=== PATIENT | female | born 1960 | race Caucasian/White ===

== ENCOUNTER 2020-02-02 09:54 | Outpatient (REF) | payer OTHER, SELFPAY ==
--- NOTE | 2020-02-02 10:00 | XR_ITS ---
EXAMINATION: XR CERVICAL SPINE CLINICAL INFORMATION: Cervical DJD. COMPARISON: None. TECHNIQUE: 6 views of the cervical spine, inclusive of flexion and extension views, were obtained. FINDINGS: There is mild straightening of cervical lordosis. Grade 1 anterolisthesis C4 over C5 and C5 over C6 is noted. There is loss of C6-C7 disc height with mild ventral spondylosis. On oblique views mild blunting of right C2-C3 and C5-C6 neural foramina is noted. No fracture, lytic or sclerotic process seen. There is bilateral facet joint arthropathy on the left C4-C5 and bilaterally C5-C6 disc levels. XR/XR cervical spine min 6V IMPRESSION: No acute fracture or dislocation. Grade 1 anterolisthesis C4 over C5 and C5 over C6. There is no visible acute fracture or dislocation.
== END 2020-02-02 09:55 | disposition home or self-care (01) ==
LOC: HO.XRAY 09:54
PROVIDERS: Visit Provider Internal Medicine
DX: M50.30 Other cervical disc degeneration, unspecified cervical region (principal)
CPT/HCPCS: 72052

== ENCOUNTER 2020-02-17 15:49 | Outpatient (REF) | payer OTHER, SELFPAY ==
--- NOTE | 2020-02-17 | MM_ITS ---
EXAMINATION: MM SCREENING DIGITAL BREAST TOMOSYNTHESIS, BILATERAL CLINICAL INFORMATION: Screening. Asymptomatic. The lifetime risk of breast cancer based on the Tyrer-Cuzick Model is 12%. COMPARISON: Mammography: 12/02/18, 10/10/17, 09/08/16, 05/21/15, 04/27/14 TECHNIQUE: Digital breast tomosynthesis is performed in both the craniocaudal and mediolateral oblique views along with computer-aided detection (CAD). Synthesized 2D images are generated from the tomosynthesis. Craniocaudal view of the right breast exaggerated toward the axilla was also performed using digital breast Tomosynthesis FINDINGS: There are scattered areas of fibroglandular density (ACR BI-RADS breast composition Category b). Right breast: There is unchanged global asymmetry in the upper outer right breast. There is an unchanged focal asymmetry in the upper outer right breast. There are no new suspicious right breast findings. Left breast: There is unchanged oval asymmetry in the upper outer left breast. There are no new suspicious left breast findings MM/MM tomosynthesis screening BI IMPRESSION: No mammographic evidence of malignancy. No suspicious interval changes ASSESSMENT: BI-RADS 2: Benign RECOMMENDATION: Routine annual mammography screening. This patient's information was entered into a reminder system with a target due date for their next mammogram.
== END 2020-02-17 15:50 | disposition home or self-care (01) ==
LOC: HO.MAMMO 15:49
PROVIDERS: Visit Provider Internal Medicine
DX: Z12.31 Encounter for screening mammogram for malignant neoplasm of breast (principal)
CPT/HCPCS: 77063; 77067

== ENCOUNTER 2020-08-07 10:48 | Outpatient (REF) | payer OTHER, SELFPAY ==
[2020-08-07 13:24] LABS: Hemoglobin 15.2 g/dl (12.0-16.0); Mean Corpuscular HGB Conc 33.8 g/dl (31.0-35.0); Mean Corpuscular Hemoglobin 29.6 pg (27.0-33.0); Mean Corpuscular Volume 87.7 fL (80-98); Mean Platelet Volume 9.8 fL (9.4-12.3); Platelet Count 326 X10*3/uL (160-400); Red Blood Count 5.13 X10*6/uL (4.20-5.50); Red Cell Distribution Width 12.2 % (11.0-16.0); White Blood Count 6.9 X10*3/uL (4.8-10.8)
[2020-08-07 13:48] LABS: Alanine Aminotransferase 28 U/L (0-31); Albumin Level 4.3 g/dL (3.5-5.0); Alkaline Phosphatase 83 U/L (39-117); Anion Gap 15 (12-20); Aspartate Amino Transferase 19 U/L (5-31); Bilirubin Total 0.6 mg/dL (0.0-1.0); Blood Urea Nitrogen 17 mg/dL (9-16); Calcium 9.6 mg/dL (8.4-10.2); Carbon Dioxide 26 mmol/L (22-29); Chloride 104 mmol/L (96-108); Cholesterol 173 mg/dL; Estimated Glomerular Filt Rate > 60; Glucose Random 130 mg/dL (60-115); HDL Cholesterol 61 mg/dL; LDL Cholesterol Calculated 90 mg/dl; Potassium 4.6 mmol/L (3.3-5.1); Sodium 140 mmol/L (135-145); Triglycerides 114 mg/dL
[2020-08-07 14:09] LABS: TSH reflex Free T4 1.71 uIU/mL (0.32-4.0); Vitamin D 25-OH Total 21.3 ng/mL (>30)
== END 2020-08-07 10:49 | disposition home or self-care (01) ==
LOC: HO.HMGCLDS 10:48
PROVIDERS: PCP Internal Medicine; Visit Provider Internal Medicine
DX: Z00.00 Encounter for general adult medical examination without abnormal findings (principal); E11.9 Type 2 diabetes mellitus without complications; E78.2 Mixed hyperlipidemia; E55.9 Vitamin D deficiency, unspecified; R53.82 Chronic fatigue, unspecified
CPT/HCPCS: 36415; 80053; 80061; 82306; 84443; 85027

== ENCOUNTER 2020-08-20 07:40 | Outpatient (REF) | payer OTHER, SELFPAY ==
--- NOTE | ~2020-08-20 | FL_ITS ---
EXAMINATION: FL BARIUM SWALLOW CLINICAL INFORMATION: Dysphagia. COMPARISON: None TECHNIQUE: Barium swallow examination was performed using fluoroscopic evaluation in addition to multiple fluoroscopic spot views. The patient was imaged both upright and prone and using both thick and thin sulfate along with effervescent granules. Fluoroscopy time: 2.3 minutes DAP: 20.125 Gycm2 Images: 50 FINDINGS: Following oral administration of thin and thick barium and barium-coated turkey in the upright view, there is normal propagation of the bolus from the oral cavity through the pharynx and esophagus into the stomach without any evidence of obstruction, narrowing or stricture. There is a moderate-sized ventral osteophyte indenting the posterior cervical esophageal wall. There is no obstruction. Also visualized is grade 1 anterolisthesis of C5 over C6. On oral administration of thin barium in the prone lying position, there is good distention of the entire esophagus without obstruction. FL/FL barium swallow IMPRESSION: Mild ventral spondylosis at the C6-C7 disc level with degenerative disc changes indenting the posterior cervical esophageal wall. There is no obstruction seen. Otherwise, the rest of the barium swallow appears unremarkable.
== END 2020-08-20 07:41 | disposition home or self-care (01) ==
LOC: HO.XRAY 07:40
PROVIDERS: PCP Internal Medicine; Visit Provider Internal Medicine
DX: R13.10 Dysphagia, unspecified (principal)
CPT/HCPCS: 74220

== ENCOUNTER 2021-02-22 11:52 | Outpatient (REF) | payer OTHER, SELFPAY ==
--- NOTE | ~2021-02-22 | MM_ITS ---
EXAMINATION: MM SCREENING DIGITAL BREAST TOMOSYNTHESIS, BILATERAL CLINICAL INFORMATION: Screening. Asymptomatic. The lifetime risk of breast cancer based on the Tyrer-Cuzick Model is 11%. COMPARISON: Mammography: 02/17/2020, 12/04/2018, 10/10/2017 TECHNIQUE: Digital breast tomosynthesis is performed in both the craniocaudal and mediolateral oblique views along with computer-aided detection (CAD). Synthesized 2D images are generated from the tomosynthesis. Additional bilateral CC and additional bilateral MLO views are provided. FINDINGS: There are scattered areas of fibroglandular density (ACR BI-RADS breast composition Category b). Parenchymal pattern is similar to prior exams. There is no interval significant mass or architectural abnormality or developing density. No abnormal calcifications. The axilla and skin contours are unremarkable. No significant changes. MM/MM tomosynthesis screening BI IMPRESSION: No mammographic evidence of malignancy. ASSESSMENT: BI-RADS 1: Negative RECOMMENDATION: Routine annual mammography screening. This patient's information was entered into a reminder system with a target due date for their next mammogram.
== END 2021-02-22 11:53 | disposition home or self-care (01) ==
LOC: HO.MAMMO 11:52
PROVIDERS: PCP Internal Medicine; Visit Provider Internal Medicine
DX: Z12.31 Encounter for screening mammogram for malignant neoplasm of breast (principal)
CPT/HCPCS: 77063; 77067

== ENCOUNTER 2021-06-24 07:45 | Day surgery (SDC) | payer OTHER, SELFPAY ==
[2021-06-20 10:22] VITALS: BMI 35.6
--- NOTE | 2021-06-23 09:43 | HO.ANESPROP2 ---
Documented by User: Lamar Holguin NP 06/23/21 09:44 HPI - Anesthesia Eval Consult details Narrative: 61yo F for Colonoscopy [facility] Past Medical History Medical History (Updated 06/20/21 @ 10:13 by Casie Wright RN) Arthritis Diabetes Elevated cholesterol Surgical History Surgical History (Updated 06/20/21 @ 10:15 by Casie Wright RN) H/O colonoscopy History of carpal tunnel release of both wrists Hx of cholecystectomy Hx of knee surgery Hx of tonsillectomy Social History Social History Patient Tobacco Use Status: Tobacco use Unknown Advance Directives: No (unknown-VM message left) Advance Directives Information Provided: Yes Advance Directives on File: No Meds Allergies Allergy/AdvReac Type Severity Reaction Status Date / Time No Known Allergies Allergy Unverified 11/27/19 15:25 [No Known Allergies*] Home Medications Medication Instructions Recorded Confirmed Last Taken Type metformin 500 mg tablet 1 tab PO QPM 06/20/21 06/20/21 Unknown History simvastatin 20 mg tablet 1 tab PO QPM 06/20/21 06/20/21 Unknown History trazodone 50 mg tablet 1 tab PO BEDTIME 06/20/21 06/20/21 Unknown History Exam Exam Date and Time: June 23, 2021 0943 Height,Weight and Vital Signs: Height 5 ft 7 in Weight 103.419 kg Assessment and Plan Assessment Anesthesia Assessment: Chart Reviewed Documented by User: Emely Dodson MD 06/24/21 08:16 [facility] Past Medical History Medical History (Updated 06/20/21 @ 10:13 by Casie Wright RN) Arthritis Diabetes Elevated cholesterol Family History Family history of problems with anesthesia: No Surgical History Surgical History (Updated 06/20/21 @ 10:15 by Casie Wright RN) H/O colonoscopy History of carpal tunnel release of both wrists Hx of cholecystectomy Hx of knee surgery Hx of tonsillectomy History of Problems with Anesthesia: No Social History Social History Patient Tobacco Use Status: Tobacco use Unknown Advance Directives: No (unknown-VM message left) Advance Directives Information Provided: Yes Advance Directives on File: No Meds Allergies Allergy/AdvReac Type Severity Reaction Status Date / Time No Known Allergies Allergy Unverified 11/27/19 15:25 [No Known Allergies*] Home Medications Medication Instructions Recorded Confirmed Last Taken Type metformin 500 mg tablet 1 tab PO QPM 06/20/21 06/20/21 Unknown History simvastatin 20 mg tablet 1 tab PO QPM 06/20/21 06/20/21 Unknown History trazodone 50 mg tablet 1 tab PO BEDTIME 06/20/21 06/20/21 Unknown History Exam Airway Mallampati Class: III TM Dist: >3cm Neck ROM: Full Assessment and Plan Assessment Anesthesia Assessment: Anesthesia Plan Discussed Final Anesthetic Review Family History of Problems with Anesthesia: No History of Problems with Anesthesia: No NPO: Yes ASA Class: III Final Preanesthetic Review: No Changes in Pt Med Stat, Meds/Allgs Chart Reviewed, Consent Obtained/Reviewed and Anes Risks/Benef Reviewed Patient Risk: Intermediate Procedure Risk: Low Anesthetic Plan Anesthetic Plan: MAC:
[2021-06-24 08:19] VITALS: BP 122/79; PULSE 94; RESP 16; TEMP 36.3; O2SAT 96
[2021-06-24 08:26] LABS: Glucose, Whole Blood 79 mg/dL (60-115)
[2021-06-24] MEDS: Lactated Ringers 1,000 ML 100 ML IVCONT (08:30)
[2021-06-24 09:35] VITALS: BP 101/58; PULSE 79; RESP 16; TEMP 36.5; O2SAT 95
--- NOTE | 2021-06-24 09:36 | P.BOP_ITS ---
Brief Operative Note Date of Service: 06/24/21 Pre-op diagnosis: Screening Post-op diagnosis: other (Polyps) Procedure: Colonoscopy to the cecum and TI with bx/removal of polyps Surgeon: Jude Robertson Anesthesia: MAC Was an Vp Informatics used for this Procedure?: No Estimated blood loss (mL): 2.0 Pathology: other (A. Ascending colon polyp B. Transverse colon polyp) Condition: stable Disposition: PACU
[2021-06-24 09:50] VITALS: BP 105/53; PULSE 78; RESP 16; O2SAT 100
[2021-06-24 10:03] VITALS: TEMP 36.4
--- NOTE | 2021-06-24 11:28 | OP_ITS ---
SURGEON: Jude Robertson MD INDICATIONS: The patient presents for evaluation of colorectal cancer screening and personal history of tubular adenoma of the colon. Full consent was obtained from her for this, including risks of bleeding and perforation. PREOPERATIVE DIAGNOSIS: POSTOPERATIVE DIAGNOSIS: PROCEDURE PERFORMED: Colonoscopy to the cecum and terminal ileum with biopsy and removal of polyps. ESTIMATED BLOOD LOSS: COMPLICATIONS: ANESTHESIA: Monitored anesthesia care. ASSISTANTS: SPECIMENS: PREOPERATIVE DIAGNOSES: Colorectal cancer screening and personal history of tubular adenoma of the colon. POSTOPERATIVE DIAGNOSES: Colorectal cancer screening and personal history of tubular adenoma of the colon, small colon polyps, diverticulosis, and internal hemorrhoids. DESCRIPTION OF PROCEDURE: The patient was placed in the left lateral decubitus position. The digital rectal exam revealed no abnormalities. The Olympus video pediatric colonoscope was entered into the rectum and advanced easily to the cecum. Once in the cecum, I did identify normal-appearing cecal pouch with appendiceal orifice and a normal-appearing ileocecal valve. The terminal ileum was cannulated and appeared normal. Scope was withdrawn back in the colon. The entire cecum and ileocecal valve appeared normal. The scope was slowly withdrawn assessing all mucosal surfaces carefully. Preparation was excellent. In the ascending colon and transverse colon were flat approximately 3 or 4 mm polyps, which were each biopsied and completely removed with cold biopsy forceps. I did not visualize any other polyps, colitis, or angiodysplasia. There was a mild amount of sigmoid diverticulosis. In the rectum, scope was retroflexed visualizing internal hemorrhoids, but no other pathology. The rectal mucosa appeared normal. The scope was straightened and withdrawn from the patient. She tolerated the procedure well and was returned to recovery area in stable condition. IMPRESSION: 1. Small colon polyps, status post biopsy removal. 2. Diverticulosis. 3. Internal hemorrhoids. PLAN: The results of the pathology will be checked. I would recommend a repeat colonoscopy in 5 years for further surveillance. She will otherwise see me on a p.r.n. basis. MD EMETERIO Tidwell/VANITA / [phone]
== END 2021-06-24 10:30 | disposition home or self-care (01) ==
PROVIDERS: PCP Internal Medicine; Visit Provider Internal Medicine
PROC: 0DJD8ZZ Inspection of Lower Intestinal Tract, Via Natural or Artificial Opening Endoscopic (ICD-10-PCS; CPT 45378; principal; 2021-06-24 09:00)
DX: Z12.11 Encounter for screening for malignant neoplasm of colon (principal); Z86.010 Personal history of colon polyps; D12.2 Benign neoplasm of ascending colon; D12.3 Benign neoplasm of transverse colon; K57.30 Diverticulosis of large intestine without perforation or abscess without bleeding; K64.8 Other hemorrhoids; E78.5 Hyperlipidemia, unspecified; E11.9 Type 2 diabetes mellitus without complications; Z79.899 Other long term (current) drug therapy; Z90.49 Acquired absence of other specified parts of digestive tract
CPT/HCPCS: 45380; 82947; 88305

== ENCOUNTER 2021-08-13 06:59 | Outpatient (REF) | payer OTHER, SELFPAY ==
[2021-08-13 10:58] LABS: Hematocrit 42.9 % (37.0-47.0); Hemoglobin 14.3 g/dl (12.0-16.0); Mean Corpuscular HGB Conc 33.3 g/dl (31.0-35.0); Mean Corpuscular Hemoglobin 29.9 pg (27.0-33.0); Mean Corpuscular Volume 89.7 fL (80.0-98.0); Mean Platelet Volume 9.9 fL (9.4-12.3); Platelet Count 333 X10*3/uL (160-400); Red Blood Count 4.78 X10*6/uL (4.20-5.50); Red Cell Distribution Width 12.6 % (11.0-16.0); White Blood Count 6.1 X10*3/uL (4.8-10.8)
[2021-08-13 11:23] LABS: Alanine Aminotransferase 18 U/L (0-31); Albumin Level 4.1 g/dL (3.5-5.0); Alkaline Phosphatase 67 U/L (39-117); Anion Gap 12 (12-20); Aspartate Amino Transferase 15 U/L (5-31); Bilirubin Total 0.7 mg/dL (0.0-1.0); Blood Urea Nitrogen 22 mg/dL (9-16); Calcium 9.1 mg/dL (8.4-10.2); Carbon Dioxide 27 mmol/L (22-29); Chloride 106 mmol/L (96-108); Cholesterol 169 mg/dL; Estimated Glomerular Filt Rate > 60; Glucose Fasting 134 mg/dL (60-99); HDL Cholesterol 55 mg/dL; LDL Cholesterol Calculated 100 mg/dl; Sodium 141 mmol/L (135-145); Total Protein 6.7 g/dL (6.5-8.0); Triglycerides 70 mg/dL
[2021-08-13 11:48] LABS: TSH reflex Free T4 2.09 uIU/mL (0.32-4.0); Vitamin D 25-OH Total 55.3 ng/mL (>30)
== END 2021-08-13 07:00 | disposition home or self-care (01) ==
LOC: HO.HMGCLDS 06:59
PROVIDERS: PCP Internal Medicine; Visit Provider Internal Medicine
DX: Z00.00 Encounter for general adult medical examination without abnormal findings (principal); E11.9 Type 2 diabetes mellitus without complications; E55.9 Vitamin D deficiency, unspecified; E78.2 Mixed hyperlipidemia; R53.83 Other fatigue
CPT/HCPCS: 36415; 80053; 80061; 82306; 84443; 85027

== ENCOUNTER 2021-08-15 08:38 | Outpatient (REF) | payer OTHER, SELFPAY ==
[2021-08-15 09:35] LABS: Creatinine Urine 71.34 mg/dL; Microalbumin Urine < 5.0 mg/L
== END 2021-08-15 08:39 | disposition home or self-care (01) ==
LOC: HO.LNP 08:38
PROVIDERS: Visit Provider Internal Medicine
DX: Z00.00 Encounter for general adult medical examination without abnormal findings (principal); E11.9 Type 2 diabetes mellitus without complications; E78.2 Mixed hyperlipidemia; E55.9 Vitamin D deficiency, unspecified; R53.83 Other fatigue
CPT/HCPCS: 82043

== ENCOUNTER 2022-03-21 11:36 | Outpatient (REF) | payer OTHER, SELFPAY ==
--- NOTE | ~2022-03-21 | US_ITS ---
EXAMINATION: US EXTREMITY NONVASCULAR CLINICAL INFORMATION: Palpable lump right shoulder. COMPARISON: None TECHNIQUE: Routine limited imaging through the right shoulder. Palpable lump is noted. FINDINGS: There is a solid isoechoic area measuring 5.0 x 1.2 x 1.5 cm isoechoic to adjacent fat. It is avascular. US/US extremity nonvascular IMPRESSION: Solid isoechoic lesion superficial to right shoulder corresponds to palpable lump is most likely a lipoma. Other differential diagnosis may include a fibroma. There is no cystic components within.
== END 2022-03-21 11:37 | disposition home or self-care (01) ==
LOC: HO.HMGCX 11:36
PROVIDERS: PCP Internal Medicine; Visit Provider Internal Medicine
DX: D17.79 Benign lipomatous neoplasm of other sites (principal)
CPT/HCPCS: 76882

== ENCOUNTER 2022-03-28 11:56 | Outpatient (REF) | payer OTHER, SELFPAY ==
--- NOTE | ~2022-03-28 | MM_ITS ---
EXAMINATION: MM SCREENING DIGITAL BREAST TOMOSYNTHESIS, BILATERAL CLINICAL INFORMATION: Screening. Asymptomatic. The lifetime risk of breast cancer based on the Tyrer-Cuzick Model is 10%. COMPARISON: Mammography: 02/22/2021, 02/17/2020, 12/04/2018, 10/10/2017 TECHNIQUE: Digital breast tomosynthesis is performed in both the craniocaudal and mediolateral oblique views along with computer-aided detection (CAD). Synthesized 2D images are generated from the tomosynthesis. Additional right cleavage view is provided. FINDINGS: There are scattered areas of fibroglandular density (ACR BI-RADS breast composition Category b). There are no significant masses, abnormal calcifications, or other abnormalities. Fibronodular parenchymal pattern with scattered stable asymmetries are similar to prior studies. There are intramammary nodes again seen bilateral posterior upper outer quadrant. No significant changes. MM/MM tomosynthesis screening BI IMPRESSION: No mammographic evidence of malignancy. ASSESSMENT: BI-RADS 2: Benign RECOMMENDATION: Routine annual mammography screening. This patient's information was entered into a reminder system with a target due date for their next mammogram.
== END 2022-03-28 11:57 | disposition home or self-care (01) ==
LOC: HO.MAMMO 11:56
PROVIDERS: PCP Internal Medicine; Visit Provider Internal Medicine
DX: Z12.31 Encounter for screening mammogram for malignant neoplasm of breast (principal)
CPT/HCPCS: 77063; 77067

== ENCOUNTER → 2022-06-13 14:37 | Outpatient (BNVA) | payer OTHER, SELFPAY | PROVIDERS: PCP Internal Medicine; Visit Provider Surgery | DX: Z13.89 Encounter for screening for other disorder (principal) ==

== ENCOUNTER 2022-07-03 07:56 | Day surgery (SDC) | payer OTHER, SELFPAY ==
[2022-06-28 13:55] VITALS: BMI 33.6
--- NOTE | 2022-06-30 13:56 | P.CONAN_ITS ---
Documented by User: Lamar Holguin NP 06/30/22 13:56 HPI - Anesthesia Eval Consult details Narrative: 62yo F for Right Excision Lipoma of shoulder PMFSH Active Problems Active Problems: All Active Problems (Updated 06/28/22 @ 13:53 by Casie Wright RN) Lipoma (Acute) Past Medical History Medical History (Updated 06/28/22 @ 13:53 by Casie Wright RN) Arthritis Diabetes Elevated cholesterol Family History Family history of problems with anesthesia: No Surgical History Surgical History (Updated 06/28/22 @ 13:38 by Casie Wright RN) H/O colonoscopy History of carpal tunnel release of both wrists Hx of cholecystectomy Hx of knee surgery Hx of tonsillectomy History of Problems with Anesthesia: No Social History Social History Are you a primary neonatal intensive care unit nurse to a significant other at home: No Do you presently have visiting nurse or other home services: No Patient Tobacco Use Status: Never used Tobacco Use of substances other than those prescribed or required for medical reasons: No Have you been hit, kicked, punched, or otherwise hurt by someone within the past year? If so, by whom?: No Are you DNR?: No Advance Directives: No Advance Directives Information Provided: Yes (brochure given) Advance Directives on File: No Recently lost weight without trying: No Eating poorly because of decreased appetite: No Nutrition Risks: No Nutritional Risk Patient : No : No Poor oral hygiene: No Meds Allergies Allergy/AdvReac Type Severity Reaction Status Date / Time No Known Allergies Allergy Unverified 06/13/22 14:55 [No Known Allergies*] Home Medications Medication Instructions Recorded Confirmed Last Taken Type metformin 500 mg tablet 1 tab PO QPM 06/20/21 06/28/22 Unknown History simvastatin 20 mg tablet 1 tab PO QPM 06/20/21 06/28/22 Unknown History cholecalciferol (vitamin D3) 25 25 mcg PO DAILY 06/13/22 06/28/22 Unknown History mcg (1,000 unit) capsule khjqxeeg-syckmfq-wcsa-lutein tablet 1 tab PO DAILY 06/13/22 06/28/22 Unknown History biotin 1,000 mcg chewable tablet 1,000 mcg PO DAILY 06/28/22 06/28/22 Unknown History vitamin C 45 mg-zinc citrate 3.75 1 tab PO DAILY 06/28/22 06/28/22 Unknown History mg-elderberry 50 mg chewable tablet (Poshly) Exam Exam Date and Time: June 30, 2022 1356 Height,Weight and Vital Signs: Height 5 ft 7 in Weight 97.522 kg Assessment and Plan Assessment Anesthesia Assessment: Chart Reviewed Final Anesthetic Review Family History of Problems with Anesthesia: No History of Problems with Anesthesia: No Documented by User: Cristian Dumont MD 07/03/22 07:54 PMFSH Past Medical History Medical History (Updated 06/28/22 @ 13:53 by Casie Wright RN) Arthritis Diabetes Elevated cholesterol Surgical History Surgical History (Updated 06/28/22 @ 13:38 by Casie Wright RN) H/O colonoscopy History of carpal tunnel release of both wrists Hx of cholecystectomy Hx of knee surgery Hx of tonsillectomy Social History Social History Are you a primary neonatal intensive care unit nurse to a significant other at home: No Do you presently have visiting nurse or other home services: No Patient Tobacco Use Status: Never used Tobacco Use of substances other than those prescribed or required for medical reasons: No Have you been hit, kicked, punched, or otherwise hurt by someone within the past year? If so, by whom?: No Are you DNR?: No Advance Directives: No Advance Directives Information Provided: Yes (brochure given) Advance Directives on File: No Recently lost weight without trying: No Eating poorly because of decreased appetite: No Nutrition Risks: No Nutritional Risk Patient : No : No Poor oral hygiene: No Meds Allergies Allergy/AdvReac Type Severity Reaction Status Date / Time No Known Allergies Allergy Unverified 06/13/22 14:55 [No Known Allergies*] Home Medications Medication Instructions Recorded Confirmed Last Taken Type metformin 500 mg tablet 1 tab PO QPM 06/20/21 06/28/22 Unknown History simvastatin 20 mg tablet 1 tab PO QPM 06/20/21 06/28/22 Unknown History cholecalciferol (vitamin D3) 25 25 mcg PO DAILY 06/13/22 06/28/22 Unknown History mcg (1,000 unit) capsule lvomxbls-txsogcn-cobc-lutein tablet 1 tab PO DAILY 06/13/22 06/28/22 Unknown History biotin 1,000 mcg chewable tablet 1,000 mcg PO DAILY 06/28/22 06/28/22 Unknown History vitamin C 45 mg-zinc citrate 3.75 1 tab PO DAILY 06/28/22 06/28/22 Unknown His tory mg-elderberry 50 mg chewable tablet (Poshly) Exam Airway Mallampati Class: II TM Dist: >3cm Neck ROM: Limited Heart: rrr Lungs: cta Assessment and Plan Assessment Anesthesia Assessment: Anesthesia Plan Discussed Final Anesthetic Review NPO: Yes ASA Class: II Patient Risk: Intermediate Procedure Risk: Low Anesthetic Plan Anesthetic Plan: GA Disposition: Standard PACU
[2022-07-03 08:10] VITALS: BP 151/83; PULSE 79; RESP 20; TEMP 36.8; O2SAT 98
[2022-07-03 08:10] LABS: Glucose, Whole Blood 125 mg/dL (60-115)
[2022-07-03 08:20] VITALS: BP 120/67
[2022-07-03] MEDS: Lactated Ringers 1,000 ML 100 ML IVCONT (08:28)
--- NOTE | 2022-07-03 08:29 | PC.NURSE ---
no meds taken today
--- NOTE | 2022-07-03 08:50 | MHC.SHP ---
Pre-Procedural Eval Section A Date of Service: 07/03/22 The patient is an INPATIENT: No Changes since office visit: Yes Patient answered all questions; No Cold of Flu in the past 2 weeks, No New Medical Problems and No Changes in Medication The History & Physical has been completed within 30 days and I have reviewed it.: Yes Section B Chief Complaint: Benign lipomatous neoplasm, unspecified Allergies: Allergies Allergy/AdvReac Type Severity Reaction Status Date / Time No Known Allergies Allergy Unverified 06/13/22 14:55 [No Known Allergies*] Plan Diagnosis/Plan: Unchanged I have reviewed the history and physical and performed a pertinent physical examination on my patient. No changes have occurred unless specified. Time Spent With Patient Time: Total time managing care of this patient today ____ minutes.
--- NOTE | 2022-07-03 09:34 | P.OP_ITS ---
Operative Note Operative Note Date of Service: 07/03/22 Narrative: Preoperative diagnosis:Lipoma right shoulder Postoperative diagnosis:same Procedure:Excision lipoma right shoulder Surgeon: Bassem Roth MD Medical Front Desk Coordinator: Zoe Pearson PA-C Anesthesia: MAC Indications for procedure:62 year old female with a soft tissue mass right shoulder increasing is size with time Operative findings:5 cm lipoma right shoulder Specimen:lipoma right shoulder Estimated blood loss:<1 ml Complications:none Procedure details: Patient was brought to the OR placed in a supine position. After administering light sedation patient's right shoulder was prepped with ChloraPrep and draped in a sterile fashion. A surgical time-out was called and consent confirmed. Patient received preoperative antibiotics and Venodyne boots were in place. Local anesthesia consisting of 0.5% Sensorcaine with epinephrine was then infiltrated around the lipoma in the right shoulder. A 2 cm incision was then created with scalpel carried out through subcutaneous tissue down to the outer surface of the lipoma. Blunt dissection was then used to free the lipoma from the surrounding subcutaneous tissue. The lipoma was then excised using electrocautery at its base. Hemostasis was then assured using electrocautery. Wounds were then irrigated and suctioned dry. Dermis was then reapproximated using interrupted 3-0 Polysorb sutures. Skin was closed using a running subcuticular 4-0 Polysorb suture. Steri-Strips, 2 x 2 gauze and Tegaderm were then applied. The patient tolerated the procedure well. Sponge, instrument, and needle counts reported as correct. Patient was transferred to PACU in stable condition.
[2022-07-03 10:01] VITALS: BP 112/57; PULSE 78; RESP 16; TEMP 36.8; O2SAT 93
[2022-07-03 10:16] VITALS: BP 117/70; PULSE 71; RESP 16; TEMP 36.7; O2SAT 95
== END 2022-07-03 11:00 | disposition home or self-care (01) ==
PROVIDERS: PCP Internal Medicine; Visit Provider Surgery
PROC: (CPT 23071; principal; 2022-07-03 09:40)
DX: D17.21 Benign lipomatous neoplasm of skin and subcutaneous tissue of right arm (principal); E78.00 Pure hypercholesterolemia, unspecified; M19.90 Unspecified osteoarthritis, unspecified site; Z90.49 Acquired absence of other specified parts of digestive tract; Z79.84 Long term (current) use of oral hypoglycemic drugs; Z79.899 Other long term (current) drug therapy; E11.9 Type 2 diabetes mellitus without complications
CPT/HCPCS: 23071; 82947; 88304; J0690; J1885

== ENCOUNTER → 2022-07-18 11:36 | Outpatient (BNVA) | payer OTHER, SELFPAY | PROVIDERS: PCP Internal Medicine; Visit Provider Physician Assistant Surgical ==

== ENCOUNTER 2022-09-15 07:49 | Outpatient (REF) | payer OTHER, SELFPAY ==
[2022-09-15 11:06] LABS: Creatinine Urine 73.47 mg/dL; Microalbumin Urine < 5.0 mg/L
== END 2022-09-15 07:50 | disposition home or self-care (01) ==
LOC: HO.LAB 07:49
PROVIDERS: PCP Internal Medicine; Visit Provider Internal Medicine
DX: Z00.00 Encounter for general adult medical examination without abnormal findings (principal); E11.9 Type 2 diabetes mellitus without complications; E78.2 Mixed hyperlipidemia; R53.83 Other fatigue
CPT/HCPCS: 36415; 80053; 80061; 82043; 84443; 85025

== ENCOUNTER 2023-03-21 09:45 | Outpatient (REF) | payer OTHER, SELFPAY ==
--- NOTE | ~2023-03-21 | XR_ITS ---
EXAMINATION: XR KNEE AP STANDING CLINICAL INFORMATION: Primary osteoarthritis of both knees COMPARISON: 02/20/2018 TECHNIQUE: AP bilateral standing view of the knees was obtained. FINDINGS: When compared to the previous examination there is progression of narrowing in the medial compartments of both knee joints, more prominent on the left with marginal spurring seen medially and laterally. There is mild varus deformity of the left knee. There is no evidence of fractures. Soft tissues unremarkable. XR/XR knee standing BI IMPRESSION: Progression of degenerative changes in the medial compartment of both knee joints, slightly more prominent on the left.
[2023-03-21 10:09] LABS: Estimated Average Glucose 134 mg/dL; Hemoglobin A1c % 6.3 % (<6.0)
== END 2023-03-21 09:46 | disposition home or self-care (01) ==
LOC: HO.LAB 09:45
PROVIDERS: PCP Internal Medicine; Visit Provider Internal Medicine
DX: M17.0 Bilateral primary osteoarthritis of knee (principal); E11.9 Type 2 diabetes mellitus without complications
CPT/HCPCS: 36415; 73565; 83036

== ENCOUNTER 2023-06-15 10:17 | Outpatient (REF) | payer OTHER, SELFPAY ==
--- NOTE | ~2023-06-15 | MM_ITS ---
EXAMINATION: MM SCREENING DIGITAL BREAST TOMOSYNTHESIS, BILATERAL CLINICAL INFORMATION: Screening. Asymptomatic. COMPARISON: Mammography: 03/28/2022, 02/22/2021, 02/17/2020, 12/04/2018, 10/10/2017, and dating back to 2013. TECHNIQUE: Digital breast tomosynthesis is performed in both the craniocaudal and mediolateral oblique views along with computer-aided detection (CAD). Synthesized 2D images are generated from the tomosynthesis. In addition to standard views, added bilateral CC full-field views, and bilateral MLO full field views were included due to breasts size. FINDINGS: There are scattered areas of fibroglandular density (ACR BI-RADS breast composition Category b). There are no suspicious masses, suspicious grouped calcifications, or areas of architectural distortion in either breast. Fibronodular parenchymal pattern with scattered stable asymmetries are similar to prior studies. There are intramammary nodes again seen bilateral posterior upper outer quadrants. No significant changes. There are no skin or axillary abnormalities. MM/MM tomosynthesis screening BI IMPRESSION: -No mammographic evidence of malignancy. -Stable benign parenchymal asymmetries. No change. ASSESSMENT: BI-RADS BI-RADS 2 - Benign Findings RECOMMENDATION: Routine annual mammography screening. 1 year F/U This examination should not preclude the clinical evaluation of a suspicious palpable abnormality. This patient's information was entered into a reminder system with a target due date for their next mammogram.
== END 2023-06-15 10:18 | disposition home or self-care (01) ==
LOC: HO.MAMMO 10:17
PROVIDERS: PCP Internal Medicine; Visit Provider Internal Medicine
DX: Z12.31 Encounter for screening mammogram for malignant neoplasm of breast (principal)
CPT/HCPCS: 77063; 77067

== ENCOUNTER → 2023-06-15 10:30 | Outpatient (BNV) | payer OTHER, SELFPAY | PROVIDERS: PCP Internal Medicine; Visit Provider Radiology Diagnostic Radiology | DX: Z12.31 Encounter for screening mammogram for malignant neoplasm of breast (principal) | CPT/HCPCS: 77063; 77067 ==

== ENCOUNTER → 2023-07-09 10:51 | Outpatient (BNVA) | payer OTHER, SELFPAY | PROVIDERS: PCP Internal Medicine; Visit Provider Orthopaedic Surgery ==

== ENCOUNTER 2023-07-10 12:37 | Outpatient (AMB) | payer OTHER, SELFPAY ==
[2023-07-10 12:40] VITALS: BMI 37.3
--- NOTE | 2023-07-10 12:40 | MHC.OFFVIS ---
Vital Signs 07/10/23 12:40 Height 5 ft 7 in Weight 238 lb BMI 37.3 Intake Visit Reasons: ov- Bilateral knee pain Intake Note: Ms. Frazier is a 63-year-old female who presents with complaints of progressively worsening bilateral knee pains and giving way. At this point her right knee pain is more bothersome than is her left. She has undergone bilateral knee arthroscopic surgery several years ago by Dr. Frazier. She got fairly good relief from those procedures initially. She has tried Tylenol and Motrin which gave her only mild relief. Most of the pain is along the medial aspects of her knees. Inventory Control Coordinator Required: No Accompanied by: Self / Same As Patient Allergies No Known Allergies [No Known Allergies*] Allergy (Unverified 07/10/23 12:41) Medication List - Last Reconciled 07/10/23 by Vernon Zambrano MD biotin 1,000 mcg PO DAILY cholecalciferol (vitamin D3) 25 mcg PO DAILY metformin 1 tab PO QPM jzixfqoo-xqukrsg-gvbp-lutein 1 tab PO DAILY simvastatin 1 tab PO QPM vit C-zinc citrate-elderberry 45-3.75-50 mg ([facility]) 1 tab PO DAILY PFSH Medical History (Updated 07/10/23 @ 12:59 by Vernon Zambrano MD) Arthritis Elevated cholesterol Diabetes Surgical History (Updated 07/20/22 @ 14:41 by Zoe Pearson PA-C) S/P excision of lipoma (07/03/22) History of carpal tunnel release of both wrists Hx of tonsillectomy Hx of knee surgery Hx of cholecystectomy H/O colonoscopy Social History (Updated 07/10/23 @ 12:43 by RADHA Campos) Are you a primary rn managed care to a significant other at home: No Do you presently have visiting nurse or other home services: No Alcohol intake: current Alcohol intake frequency: holidays/special occasions only Patient Tobacco Use Status: Never used Tobacco Physical Exam Vital Signs: BMI result Body Mass Index 37.3 Const Other: Well-nourished well-developed very friendly female awake alert and oriented x3 in no acute distress Extrem Other: Bilateral lower extremity examination shows good capillary refill, no skin lesions noted, normal sensation light touch Bilateral knee examination shows tenderness along her medial joint lines, positive Bindu's test, no instability Results Reviewed Results Reviewed: X-rays of the patient's bilateral knee show moderate joint space narrowing most significant in the medial compartments, no acute bony abnormalities Assessment & Plan Assessment & Plan (1) Tear of medial meniscus of right knee: Code(s): S83.241A - Other tear of medial meniscus, current injury, right knee, initial encounter Category: Medical Plan Ms. Frazier presents with bilateral knee pains and mechanical symptoms, right greater than left, due to degenerative joint disease as well as possible tearing of her medial menisci. Thus, I will send the patient for an MRI of her right knee for further evaluation. I will see her back once the MRI is completed to discuss the findings and treatment options. Feel free to call me at any time should questions regarding her orthopedic management arise. Thank you very much for asking me to see this very friendly patient. I spent 22 minutes in reviewing the patient's records and imaging studies, seeing the patient and documenting in the medical record. Orders: Orders MR knee RT wo con Today S83.241A - Other tear of medial meniscus, current injury, right knee, initial encounter Coding Level of Care Code New Pt Level 2 (45211) Diagnoses Tear of medial meniscus of right knee S83.241A
== END 2023-07-10 12:58 | disposition home or self-care (01) ==
PROVIDERS: PCP Internal Medicine; Visit Provider Orthopaedic Surgery
DX: S83.241A Other tear of medial meniscus, current injury, right knee, initial encounter (principal)
CPT/HCPCS: 99202

== ENCOUNTER → 2023-07-10 12:37 | Outpatient (BNVA) | payer OTHER, SELFPAY | PROVIDERS: PCP Internal Medicine; Visit Provider Orthopaedic Surgery ==

== ENCOUNTER 2023-07-20 10:39 | Outpatient (REF) | payer OTHER, SELFPAY ==
--- NOTE | ~2023-07-20 | MR_ITS ---
EXAMINATION: MR KNEE WITHOUT CONTRAST, RIGHT CLINICAL INFORMATION: Right knee pain. Instability. Prior arthroscopy. COMPARISON: Multiple priors, most recent right knee radiographs dated 03/21/2023 and MRI dated 05/23/2017. TECHNIQUE: MRI of the knee without contrast was performed using routine sequences on a high-field scanner. FINDINGS: MENISCI: Medial Meniscus: Interval attenuation and heterogeneity of the posterior meniscal body with significant thickening and irregularity along the periphery in the region of the previously seen meniscal flap. Attenuation extends through the inner margin and tibial articular surface of the posterior horn and root. Findings are increased in prominence when compared to the prior examination and likely represent progressive complex tearing. Lateral Meniscus: Intact. LIGAMENTS: Cruciate: Prominent thickening and increased T2 signal throughout the anterior cruciate ligament with more mild increased T2 signal in the posterior cruciate ligament, increased when compared to the prior examination and consistent with mucoid degeneration. Collateral: Intact. EXTENSOR MECHANISM: Intact quadriceps and patellar tendons. Normal patellofemoral alignment. ARTICULAR CARTILAGE/BONE: Patellofemoral Compartment: Diffuse patellar articular cartilage thinning and signal heterogeneity with areas of full-thickness fissuring and underlying subchondral cystic change. Medial and central trochlear signal heterogeneity and surface irregularity. Marginal osteophytes. Findings are progressed when compared to the prior examination. Medial Compartment: Diffuse articular cartilage thinning with broad areas of weightbearing full-thickness articular cartilage loss where there is mild subchondral cystic change. Marginal osteophytes. Findings are progressed when compared to the prior examination. Lateral Compartment: Articular cartilage signal heterogeneity and surface irregularity with small marginal osteophytes, slightly progressed. JOINT FLUID AND BURSAE: Small joint effusion and small Mcginnis's cyst with mild synovitis. Fluid/edema extending distal to the Mcginnis's cyst within the fascial planes, consistent with leak or rupture. MR/MR knee RT wo con IMPRESSION: 1. Interval attenuation and heterogeneity of the posterior medial meniscal body with significant thickening and irregularity along the periphery of the meniscal body as well as progressive attenuation of the posterior horn and body, consistent with progressive complex tearing. 2. Mucoid degeneration of the anterior cruciate ligament and to a lesser degree the posterior cruciate ligament, increased when compared to the prior examination. 3. Vckdfuns-nb-oauxkq medial as well as yllg-jr-mtycntem patellofemoral and mild lateral compartment osteoarthritis, progressed when compared to the prior examination. Small joint effusion and small Mcginnis's cyst with mild synovitis. Fluid/edema extending distal to the Mcginnis's cyst within the fascial planes, consistent with leak or rupture.
== END 2023-07-20 10:40 | disposition home or self-care (01) ==
LOC: HO.MRI 10:39
PROVIDERS: PCP Internal Medicine; Visit Provider Orthopaedic Surgery
DX: S83.241A Other tear of medial meniscus, current injury, right knee, initial encounter (principal)
CPT/HCPCS: 73721

== ENCOUNTER 2023-08-29 14:34 | Outpatient (AMB) | payer OTHER, SELFPAY ==
--- NOTE | 2023-08-29 14:35 | A.OFFVIS_ITS ---
Intake Visit Reasons: OV - Right Knee MRI Review Intake Note: Ms. Frazier is a 63-year-old female who presents with complaints of progressively worsening bilateral knee pains and giving way. At this point her right knee pain is more bothersome than is her left. She has undergone bilateral knee arthroscopic surgery several years ago by Dr. Frazier. She got fairly good relief from those procedures initially. She has tried Tylenol and Motrin which gave her only mild relief. Most of the pain is along the medial aspects of her knees. She states that her right knee will give out several times per day. She has done physical therapy which aggravated her pain. Allergies No Known Allergies [No Known Allergies*] Allergy (Unverified 08/29/23 14:37) Medication List - Last Reconciled 08/29/23 by Vernon Zambrano MD biotin 1,000 mcg PO DAILY cholecalciferol (vitamin D3) 25 mcg PO DAILY meloxicam 15 mg PO DAILY PRN metformin 1 tab PO QPM berajoir-rstmtze-cdul-lutein 1 tab PO DAILY simvastatin 1 tab PO QPM vit C-zinc citrate-elderberry 45-3.75-50 mg ([employer]) 1 tab PO DAILY PFSH Medical History Arthritis Elevated cholesterol Diabetes Surgical History S/P excision of lipoma (07/03/22) History of carpal tunnel release of both wrists Hx of tonsillectomy Hx of knee surgery Hx of cholecystectomy H/O colonoscopy Social History Are you a primary dialysis patient care technician to a significant other at home: No Do you presently have visiting nurse or other home services: No Alcohol intake: current Alcohol intake frequency: holidays/special occasions only Patient Tobacco Use Status: Never used Tobacco Physical Exam Const Other: Well-nourished well-developed very friendly female awake alert and oriented x3 in no acute distress Extrem Other: Bilateral lower extremity examination shows good capillary refill, no skin lesions noted, normal sensation light touch Right knee examination shows a minimal effusion, mild crepitus with range of motion, tenderness along her medial and lateral joint lines, positive Bindu's test, no instability Results Reviewed Results Reviewed: Standing full weight-bearing x-rays of the patient's right knee show mild joint space narrowing, no acute bony abnormalities MRI of the patient's right knee shows mild diffuse degenerative changes as well as tearing of the medial and lateral menisci Assessment & Plan Assessment & Plan (1) Tear of medial meniscus of right knee: Code(s): S83.241A - Other tear of medial meniscus, current injury, right knee, initial encounter Category: Medical Plan Ms. Frazier presents with progressively worsening right knee pain and mechanical symptoms due to tearing of her medial and lateral menisci. I had a lengthy discussion with the patient regarding the treatment options. At this point she has failed continued non operative treatments. The risks and benefits of right knee arthroscopic surgery were discussed at length with the patient. The patient wishes to proceed with surgery. She does understand that she may not get 100% relief of her symptoms depending on the severity of her degenerative changes. Surgery will involve right knee arthroscopic partial medial and lateral meniscectomies. The patient will be scheduled for next available date. She will follow-up as instructed. Feel free to call me at any time should questions regarding her orthopedic management arise. I spent 20 minutes in reviewing the patient's records and imaging studies, seeing the patient and documenting in the medical record. Medications: New meloxicam 15 mg PO DAILY PRN 30 tabs 3RF pain Coding Level of Care Code Tele New Pt Level 3 (18660) Diagnoses Tear of medial meniscus of right knee S83.241A
== END 2023-08-29 15:05 | disposition home or self-care (01) ==
PROVIDERS: PCP Internal Medicine; Visit Provider Orthopaedic Surgery
DX: S83.241A Other tear of medial meniscus, current injury, right knee, initial encounter (principal)
CPT/HCPCS: 99214

== ENCOUNTER → 2023-08-29 14:34 | Outpatient (BNVA) | payer OTHER, SELFPAY | PROVIDERS: PCP Internal Medicine; Visit Provider Orthopaedic Surgery ==

== ENCOUNTER 2023-10-19 09:30 | Outpatient (REF) | payer OTHER, SELFPAY ==
[2023-10-19 09:49] LABS: MANUAL DIFF FLAG NO
[2023-10-19 10:21] LABS: Basophils Percent Auto 0.5 % (0-2); Eosinophils Absolute Auto 0.3 X10*3/uL (0.0-0.4); Eosinophils Percent Auto 4.2 % (0-4); Hematocrit 42.3 % (37.0-47.0); Hemoglobin 14.6 g/dl (12.0-16.0); Imm Gran Abs Auto 0.05 X10*3/uL (0.00-0.03); Imm Gran Pct Auto 0.7 % (0.0-0.4); Lymphocytes Absolute Auto 2.2 X10*3/uL (1.2-4.9); Lymphocytes Percent Auto 28.3 % (20-40); Mean Corpuscular HGB Conc 34.5 g/dl (31.0-35.0); Mean Corpuscular Hemoglobin 30.3 pg (27.0-33.0); Mean Corpuscular Volume 87.8 fL (80.0-98.0); Mean Platelet Volume 9.1 fL (9.4-12.3); Monocytes Absolute Auto 0.4 X10*3/uL (0.1-1.2); Monocytes Percent Auto 5.7 % (2-11); Neutrophils Absolute Auto 4.6 x10*3/uL (2.0-8.3); Neutrophils Percent Auto 60.6 % (45-73); Platelet Count 289 X10*3/uL (160-400); Red Blood Count 4.82 X10*6/uL (4.20-5.50); Red Cell Distribution Width 12.3 % (11.0-16.0); White Blood Count 7.6 X10*3/uL (4.8-10.8)
[2023-10-19 11:01] LABS: Estimated Average Glucose 137 mg/dL; Hemoglobin A1c % 6.4 % (<6.0)
[2023-10-19 11:05] LABS: Alanine Aminotransferase 26 U/L (0-31); Albumin Level 4.2 g/dL (3.5-5.0); Alkaline Phosphatase 80 U/L (39-117); Anion Gap 12 (12-20); Aspartate Amino Transferase 16 U/L (5-31); Bilirubin Total 0.6 mg/dL (0.0-1.0); Blood Urea Nitrogen 22 mg/dL (9-16); Calcium 9.2 mg/dL (8.4-10.2); Carbon Dioxide 28 mmol/L (22-29); Chloride 107 mmol/L (96-108); Estimated Glomerular Filt Rate > 60; Glucose Random 126 mg/dL (60-115); HDL Cholesterol 67 mg/dL (>40); Potassium 4.7 mmol/L (3.3-5.1); Sodium 142 mmol/L (135-145)
[2023-10-19 11:22] LABS: Thyroid Stimulating Hormone 1.62 uIU/mL (0.32-4.0)
[2023-10-19 11:49] LABS: Creatinine Urine 110.42 mg/dL; Microalbum/Creatinine Ratio Ur 6.3 ug/mg cr (<30)
== END 2023-10-19 09:31 | disposition home or self-care (01) ==
LOC: HO.LAB 09:30
PROVIDERS: PCP Internal Medicine; Visit Provider Internal Medicine
DX: E11.9 Type 2 diabetes mellitus without complications (principal); E78.2 Mixed hyperlipidemia; R53.83 Other fatigue
CPT/HCPCS: 36415; 80053; 82043; 82570; 83036; 83718; 84443; 85025

== ENCOUNTER 2023-10-30 07:47 | Outpatient (REF) | payer OTHER, SELFPAY ==
[2023-10-30 09:14] LABS: Cholesterol 186 mg/dL (<200); HDL Cholesterol 67 mg/dL (>40); LDL Cholesterol Calculated 102 mg/dL (<100); Triglycerides 87 mg/dL (<150)
== END 2023-10-30 07:48 | disposition home or self-care (01) ==
LOC: HO.LAB 07:47
PROVIDERS: PCP Internal Medicine; Visit Provider Internal Medicine
DX: E78.2 Mixed hyperlipidemia (principal)
CPT/HCPCS: 36415; 80061

== ENCOUNTER 2023-11-20 14:37 | Outpatient (AMB) | payer OTHER, SELFPAY ==
--- NOTE | 2023-11-20 14:40 | MHC.OFFVIS ---
Vital Signs 11/20/23 14:41 Height 5 ft 7 in Weight 240 lb BMI 37.6 Intake Visit Reasons: Pre-Rt Knee 12/07/23 Intake Note: Ms. Frazier is a 63-year-old female who presents with complaints of progressively worsening bilateral knee pains and giving way. At this point her right knee pain is more bothersome than is her left. She has undergone bilateral knee arthroscopic surgery several years ago by Dr. Frazier. She got fairly good relief from those procedures initially. She has tried Tylenol and Motrin which gave her only mild relief. Most of the pain is along the medial aspects of her knees. She states that her right knee will give out several times per day. She has done physical therapy which aggravated her pain. She states that her right knee will give out several times per day. Allergies No Known Allergies [No Known Allergies*] Allergy (Verified 11/20/23 14:41) Medication List - Last Reconciled 11/21/23 by Vernon Zambrano MD biotin 1,000 mcg PO DAILY cholecalciferol (vitamin D3) 25 mcg PO DAILY meloxicam 15 mg PO DAILY PRN metformin 1 tab PO QPM lxzaucfp-tjvpgej-mklz-lutein 1 tab PO DAILY oxycodone 5 mg PO Q6H PRN simvastatin 1 tab PO QPM vit C-zinc citrate-elderberry 45-3.75-50 mg ([facility]) 1 tab PO DAILY PFSH Medical History Arthritis Elevated cholesterol Diabetes Surgical History S/P excision of lipoma (07/03/22) History of carpal tunnel release of both wrists Hx of tonsillectomy Hx of knee surgery Hx of cholecystectomy H/O colonoscopy Social History Are you a primary home care assistant to a significant other at home: No Do you presently have visiting nurse or other home services: No Alcohol intake: current Alcohol intake frequency: holidays/special occasions only Patient Tobacco Use Status: Never used Tobacco Physical Exam Vital Signs: BMI result Body Mass Index 37.6 Const Other: Well-nourished well-developed very friendly female awake alert and oriented x3 in no acute distress Extrem Other: Bilateral lower extremity examination shows good capillary refill, no skin lesions noted, normal sensation light touch Right knee examination shows a minimal effusion, mild crepitus with range of motion, tenderness along her medial and lateral joint lines, positive Bindu's test, no instability Results Reviewed Results Reviewed: Standing full weight-bearing x-rays of the patient's right knee shows mild diffuse joint space narrowing, no acute bony abnormalities MRI of the patient's right knee shows mild diffuse degenerative changes as well as a tear of the medial meniscus and possible tearing of the lateral meniscus Assessment & Plan Assessment & Plan (1) Tear of medial meniscus of right knee: Code(s): S83.241A - Other tear of medial meniscus, current injury, right knee, initial encounter Category: Medical Plan Ms. Frazier presents with progressively worsening right knee pain and mechanical symptoms due to a tear of her medial meniscus and possible tearing of her lateral meniscus. I had a lengthy discussion with the patient regarding the treatment options. At this point she has failed continued non operative treatments. The risks and benefits of revision right knee arthroscopic surgery were discussed at length with the patient. The patient wishes to proceed with surgery. She does understand that she may not get 100% relief of her symptoms depending on the severity of her degenerative changes. The patient was given a prescription for oxycodone for her postoperative pain. She will follow-up as instructed. Feel free to call me at any time should questions regarding her orthopedic management arise. I spent 21 minutes in reviewing the patient's records and imaging studies, seeing the patient and documenting in the medical record. Medications: New oxycodone Partial Fill upon patient request. 5 mg PO Q6H PRN 20 tabs 0RF pain Coding Level of Care Code Est Pt Level 3 (46774) Complex EM visit Add On G2211 Diagnoses Tear of medial meniscus of right knee S83.241A
[2023-11-20 14:41] VITALS: BMI 37.6
== END 2023-11-20 14:59 | disposition home or self-care (01) ==
PROVIDERS: PCP Internal Medicine; Visit Provider Orthopaedic Surgery
DX: S83.241A Other tear of medial meniscus, current injury, right knee, initial encounter (principal)
CPT/HCPCS: 99213

== ENCOUNTER → 2023-11-20 14:37 | Outpatient (BNVA) | payer OTHER, SELFPAY | PROVIDERS: PCP Internal Medicine; Visit Provider Orthopaedic Surgery ==

== ENCOUNTER 2023-12-07 05:47 | Day surgery (SDC) | payer OTHER, SELFPAY ==
[2023-12-05 13:37] VITALS: BMI 37.6
[2023-12-07] VITALS (9 sets, daily range): BP systolic 137–158; BP diastolic 64–88; PULSE 73–94; RESP 16; TEMP 36.4–36.8; O2SAT 93–99; BMI 39.2
[2023-12-07 06:31] LABS: Glucose, Whole Blood 152 mg/dL (60-115)
[2023-12-07] MEDS: Lactated Ringers 1,000 ML 100 ML IVCONT (06:33)
--- NOTE | 2023-12-07 07:15 | P.CONAN_ITS ---
Documented by User: Lamar Holguin NP 12/05/23 13:54 HPI - Anesthesia Eval Consult details Narrative: 63yo F for Right Knee Arthroscopy,partial meniscectomy and possilbe lateral meniscectomy PMFSH Active Problems Active Problems: All Active Problems Tear of medial meniscus of right knee (Acute) S/P excision of lipoma (Acute 07/03/22) Lipoma (Acute) Past Medical History Medical History Arthritis Elevated cholesterol Diabetes Family History Family history of problems with anesthesia: No Surgical History Surgical History (Updated 12/07/23 @ 06:08 by Gladys Conway RN) S/P excision of lipoma (07/03/22) History of carpal tunnel release of both wrists Hx of tonsillectomy Hx of knee surgery Hx of cholecystectomy H/O colonoscopy History of Problems with Anesthesia: No Social History Social History Are you a primary long term acute care registered nurse to a significant other at home: No Do you presently have visiting nurse or other home services: No Alcohol intake: current Alcohol intake frequency: holidays/special occasions only Patient Tobacco Use Status: Never used Tobacco Use of substances other than those prescribed or required for medical reasons: No Are you DNR?: No Advance Directives: No Advance Directives Information Provided: Yes Recently lost weight without trying: No How much weight loss: Not applicable Eating poorly because of decreased appetite: No Nutrition screen score: 0 Nutrition Risks: No Nutritional Risk Patient : No : No Poor oral hygiene: No Meds Allergies Allergy/AdvReac Type Severity Reaction Status Date / Time No Known Allergies Allergy Verified 12/07/23 06:08 [No Known Allergies*] Home Medications ?Medication ?Instructions ?Recorded ?Confirmed ?Last Taken ?Type metformin 500 mg tablet 1 tab PO QPM 06/20/21 12/07/23 12/06/23 History simvastatin 20 mg tablet 1 tab PO QPM 06/20/21 12/07/23 Unknown History cholecalciferol (vitamin D3) 25 25 mcg PO DAILY 06/13/22 12/07/23 Unknown History mcg (1,000 unit) capsule asinqquw-eadofhn-bohb-lutein tablet 1 tab PO DAILY 06/13/22 12/07/23 Unknown History biotin 1,000 mcg chewable tablet 1,000 mcg PO DAILY 06/28/22 12/07/23 Unknown History vitamin C 45 mg-zinc citrate 3.75 1 tab PO DAILY 06/28/22 12/07/23 Unknown History mg-elderberry 50 mg chewable tablet ([facility]) Exam Height,Weight and Vital Signs: Height 5 ft 7 in Weight 108.862 kg Pertinent Lab Results Pertinent Lab Results: Laboratory Tests 10/19/23 09:47 WBC 7.6 Hgb 14.6 Hct 42.3 Plt Count 289 Sodium 142 Potassium 4.7 Chloride 107 Carbon Dioxide 28 BUN 22 H Creatinine 0.70 Assessment and Plan Assessment Anesthesia Assessment: Chart Reviewed Final Anesthetic Review Family History of Problems with Anesthesia: No History of Problems with Anesthesia: No Documented by User: Kristen Peck DO 12/07/23 07:15 [facility] Past Medical History Medical History Arthritis Elevated cholesterol Diabetes Family History Family history of problems with anesthesia: No Surgical History Surgical History (Updated 12/07/23 @ 06:08 by Gladys Conway RN) S/P excision of lipoma (07/03/22) History of carpal tunnel release of both wrists Hx of tonsillectomy Hx of knee surgery Hx of cholecystectomy H/O colonoscopy History of Problems with Anesthesia: No Social History Social History Are you a primary long term acute care registered nurse to a significant other at home: No Do you presently have visiting nurse or other home services: No Alcohol intake: current Alcohol intake frequency: holidays/special occasions on ly Patient Tobacco Use Status: Never used Tobacco Use of substances other than those prescribed or required for medical reasons: No Are you DNR?: No Advance Directives: No Advance Directives Information Provided: Yes Recently lost weight without trying: No How much weight loss: Not applicable Eating poorly because of decreased appetite: No Nutrition screen score: 0 Nutrition Risks: No Nutritional Risk Patient : No : No Poor oral hygiene: No Meds Allergies Allergy/AdvReac Type Severity Reaction Status Date / Time No Known Allergies Allergy Verified 12/07/23 06:08 [No Known Allergies*] Home Medications ?Medication ?Instructions ?Recorded ?Confirmed ?Last Taken ?Type metformin 500 mg tablet 1 tab PO QPM 06/20/21 12/07/23 12/06/23 History simvastatin 20 mg tablet 1 tab PO QPM 06/20/21 12/07/23 Unknown History cholecalciferol (vitamin D3) 25 25 mcg PO DAILY 06/13/22 12/07/23 Unknown History mcg (1,000 unit) capsule tckjieja-yoyrxcn-gvrr-lutein tablet 1 tab PO DAILY 06/13/22 12/07/23 Unknown History biotin 1,000 mcg chewable tablet 1,000 mcg PO DAILY 06/28/22 12/07/23 Unknown History vitamin C 45 mg-zinc citrate 3.75 1 tab PO DAILY 06/28/22 12/07/23 Unknown History mg-elderberry 50 mg chewable tablet ([employer] (T/A)) Exam Exam Date and Time: 12/07/23 0714 Height,Weight and Vital Signs: Height 5 ft 7 in Weight 108.862 kg Vital Signs Temperature 98.2 F 12/07/23 06:13 Pulse Rate 86 12/07/23 06:13 Respiratory Rate 16 12/07/23 06:13 Blood Pressure 148/82 H 12/07/23 06:13 Pulse Oximetry 95 12/07/23 06:13 Oxygen Delivery Method Room Air 12/07/23 06:13 Temperature 98.2 F 12/07/23 06:13 Pulse Rate 86 12/07/23 06:13 Respiratory Rate 16 12/07/23 06:13 Blood Pressure 148/82 H 12/07/23 06:13 Pulse Oximetry 95 12/07/23 06:13 Oxygen Delivery Method Room Air 12/07/23 06:13 Airway Mallampati Class: II TM Dist: >3cm Neck ROM: Full Loose/Missing/Broken Teeth: No (patient denies any loose or broken teeth) Heart: S1S2 Lungs: CTAB Assessment and Plan Assessment Anesthesia Assessment: Anesthesia Plan Discussed and Chart Reviewed Final Anesthetic Review Family History of Problems with Anesthesia: No History of Problems with Anesthesia: No NPO: Yes ASA Class: II Final Preanesthetic Review: No Changes in Pt Med Stat, Meds/Allgs Chart Reviewed, Consent Obtained/Reviewed and Anes Risks/Benef Reviewed Patient Risk: Low Procedure Risk: Low Anesthetic Plan Anesthetic Plan: GA and Agree w/ Assess. and Plan Disposition: Standard PACU
[2023-12-07] MEDS: cefTRIAXone sodium 1 GM in 0.9 % Sodium Chloride 50 ML IV (08:46)
--- NOTE | 2023-12-07 08:55 | P.BOP_ITS ---
Brief Operative Note Date of Service: 12/07/23 Pre-op diagnosis: Right knee medial meniscus tear, right knee lateral meniscus tear, right knee degenerative joint disease Post-op diagnosis: same Procedure: Right knee diagnostic arthroscopy with right knee arthroscopic partial medial and lateral meniscectomies, right knee arthroscopic chondroplasty of the undersurface of the patella and the medial femoral condyle Implants: none Surgeon: Vernon Zambrano MD Anesthesia: GLMA Was an Md Senior Research Scientist used for this Procedure?: No Estimated blood loss (mL): 10 Pathology: none sent Condition: stable Disposition: PACU
--- NOTE | 2023-12-07 08:57 | W.PM.OPN ---
Operative Note Operative Note Date of Service: 12/07/23 Narrative: After the patient was identified as Deisi Frazier and her right knee was initialed by myself they were brought to the operating room where general anesthesia was induced by the anesthesiologist in routine fashion. The patient was given 2 g of IV Ancef for infection prophylaxis. A formal time-out was completed. The patient's right lower extremity was prepped and draped in sterile fashion. Marcaine with epinephrine was injected into the planned incision sites as well as their right knee joint. A # 11 scalpel blade was used to make an anterolateral portal 1 cm proximal to the joint line and 1 cm lateral to the patellar tendon. Blunt trocar technique was used into the suprapatellar pouch with the knee in extension. Diagnostic arthroscopy showed multiple bands of thickened plica which would be excised at the end of the procedure. There were no loose bodies or abnormalities found in either the medial or lateral gutters. There were diffuse grades 2 and 3 degenerative changes of the undersurface of the patella as well as grades 2 and 3 degenerative changes of the trochlear groove. The patient's knee was flexed to 45 degrees and a valgus force was placed upon it. The medial compartment was entered. An anteromedial portal was made 1 cm proximal to the joint line and 1 cm medial to the patellar tendon. Probing of the medial meniscus showed a radial tear of the posterior horn. A partial medial meniscectomy was performed using the arthroscopic shaver. Following the partial meniscectomy the remainder of the meniscus tissue was stable. There were diffuse grades 3 and 4 degenerative changes of the medial femoral condyle as well as diffuse grades 3 and 4 degenerative changes of the medial tibial plateau. The articular surface of the medial femoral condyle was made smooth using the arthroscopic shaver. The articular surface of the medial tibial plateau was already smooth so no chondroplasty was indicated. The patient's knee was then placed into a neutral position. There was no injury to the anterior cruciate ligament. The patient's knee was then placed into the figure of 4 position and the lateral compartment was entered. There were minimal degenerative changes of the lateral femoral condyle and lateral tibial plateau. There was a radial tear of the anterior horn of the lateral meniscus. A partial lateral meniscectomy was performed using the arthroscopic shaver. Following the partial meniscectomy the remainder of the meniscus tissue was stable. The patient's knee was once again brought into extension and the suprapatellar pouch was entered. The arthroscopic shaver and the ArthroCare Wand were used to excise the thickened bands of plica. The undersurface of the patella was then made smooth using the arthroscopic shaver. The articular surface of the trochlear groove was already smooth so no chondroplasty was indicated. The knee joint was irrigated and then drained. All arthroscopic instruments were removed. The 2 portals were closed with 3-0 nylon interrupted suture. The knee joint was injected with Marcaine. Dry sterile dressing and Prashant bandages were placed over the patient's knee. The patient was awoken and extubated in the operating room. They were transferred to the recovery room in stable condition.
[2023-12-07] MEDS: Haloperidol Lactate 5 MG/ML VIAL 1 MG IVPUSH (09:25)
== END 2023-12-07 10:04 | disposition home or self-care (01) ==
PROVIDERS: PCP Internal Medicine; Visit Provider Orthopaedic Surgery
PROC: (CPT 29870; principal; 2023-12-07 07:30)
DX: S83.281A Other tear of lateral meniscus, current injury, right knee, initial encounter (principal); S83.241A Other tear of medial meniscus, current injury, right knee, initial encounter; M17.11 Unilateral primary osteoarthritis, right knee; M67.51 Plica syndrome, right knee; X58.XXXA Exposure to other specified factors, initial encounter; Y93.9 Activity, unspecified; Y92.9 Unspecified place or not applicable; Y99.8 Other external cause status; E78.00 Pure hypercholesterolemia, unspecified; E11.9 Type 2 diabetes mellitus without complications; Z79.84 Long term (current) use of oral hypoglycemic drugs; Z79.899 Other long term (current) drug therapy; Z98.890 Other specified postprocedural states
CPT/HCPCS: 29880; 29876; 82947; J0131; J0171; J0690; J0696; J1100; J1630; J1885; J2405; J2704; J2795; J3010

== ENCOUNTER → 2023-12-07 05:47 | Outpatient (BNV) | payer OTHER, SELFPAY | PROVIDERS: PCP Internal Medicine; Visit Provider Orthopaedic Surgery | DX: S83.241A Other tear of medial meniscus, current injury, right knee, initial encounter (principal); S83.281A Other tear of lateral meniscus, current injury, right knee, initial encounter | CPT/HCPCS: 29880 ==

== ENCOUNTER 2023-12-20 14:22 | Outpatient (AMB) | payer OTHER, SELFPAY ==
--- NOTE | 2023-12-20 14:24 | A.OFFVIS_ITS ---
Intake Visit Reasons: PO-Rt Knee 12/07/23 Intake Note: Deisi a 63 year old female who presents today for a right knee on 12/07/23 Patient reports she is doing well, denies any pain. She has no concerns today. Allergies No Known Allergies [No Known Allergies*] Allergy (Verified 12/20/23 14:28) Medication List - Last Reconciled 12/20/23 by Marlon Duenas PA-C biotin 1,000 mcg PO DAILY cholecalciferol (vitamin D3) 25 mcg PO DAILY meloxicam 15 mg PO DAILY PRN metformin 1 tab PO QPM fwlnrdre-vmesnrk-pvev-lutein 1 tab PO DAILY simvastatin 1 tab PO QPM vit C-zinc citrate-elderberry 45-3.75-50 mg ([employer]) 1 tab PO DAILY HPI HPI PO-Rt Knee 12/07/23 DR: Details: 63-year-old female who returns to the office today for post-op right knee , 12/07/[address] Zambrano. She states she has no pain and is doing well overall. She has no concerns today. [facility] Medical History Arthritis Elevated cholesterol Diabetes Surgical History S/P excision of lipoma (07/03/22) History of carpal tunnel release of both wrists Hx of tonsillectomy Hx of knee surgery Hx of cholecystectomy H/O colonoscopy Social History Are you a primary healthcare manager to a significant other at home: No Do you presently have visiting nurse or other home services: No Alcohol intake: current Alcohol intake frequency: holidays/special occasions only Patient Tobacco Use Status: Never used Tobacco Review of Systems Const All systems reviewed & are unremarkable except as noted in HPI and below Physical Exam Extrem Other: Right knee: Incision clean, dry and intact. No redness or swelling. ROM is 0-95 degrees. Calf supple, nontender. NVI. Results Reviewed Results Reviewed: Brief Operative Note Date of Service: 12/07/23 Pre-op diagnosis: Right knee medial meniscus tear, right knee lateral meniscus tear, right knee degenerative joint disease Post-op diagnosis: same Procedure: Right knee diagnostic arthroscopy with right knee arthroscopic partial medial and lateral meniscectomies, right knee arthroscopic chondroplasty of the undersurface of the patella and the medial femoral condyle Implants: none Surgeon: Vernon Zambrano MD Assessment & Plan Assessment & Plan (1) Tear of medial meniscus of right knee: Code(s): S83.241A - Other tear of medial meniscus, current injury, right knee, initial encounter Category: Medical Plan Sutures removed today, steri strips applied. She will begin a course of physical therapy to work on ROM and strengthening. She can increase activities as tolerated however she should limit impact activities. She will avoid any type of deep bending, kneeling, twisting, pivoting, or squatting and remain out of work until her follow-up appointment in [address] Zambrano, sooner if needed. ? Orders: Orders PT Evaluation and Treatment Today M17.11 - Unilateral primary osteoarthritis, right knee, S83.241A - Other tear of medial meniscus, current injury, right knee, initial encounter Patient Instructions: Scribed for Marlon Duenas PA-C, by Hernando Almaguer medical anthropologist, on 12/20/2023 at 2:30 PM EST.? I, Marlon Duenas PA-C, have personally reviewed and agree with the information entered by the scribe. Coding Level of Care Code Global (28847) Diagnoses Tear of medial meniscus of right knee S83.241A
== END 2023-12-20 14:47 | disposition home or self-care (01) ==
PROVIDERS: PCP Internal Medicine; Visit Provider Physician Assistant
DX: S83.241A Other tear of medial meniscus, current injury, right knee, initial encounter (principal)
CPT/HCPCS: 99024

== ENCOUNTER → 2023-12-20 14:22 | Outpatient (BNVA) | payer OTHER, SELFPAY | PROVIDERS: PCP Internal Medicine; Visit Provider Physician Assistant ==

== ENCOUNTER 2024-01-22 11:07 | Outpatient (AMB) | payer OTHER, SELFPAY ==
--- NOTE | 2024-01-22 11:09 | A.OFFVIS_ITS ---
Intake Visit Reasons: Right knee discomfort Intake Note: Deisi is a 63 year old female who presents with complaints of mild to moderate discomfort in her right knee after undergoing right knee arthroscopic surgery on 12/07/2023. She denies any fevers or chills. She continues to go to formal physical therapy at [facility] rehab. She has not yet returned to work. Allergies No Known Allergies [No Known Allergies*] Allergy (Verified 01/22/24 11:14) Medication List - Last Reconciled 01/23/24 by Vernon Zambrano MD biotin 1,000 mcg PO DAILY cholecalciferol (vitamin D3) 25 mcg PO DAILY meloxicam 15 mg PO DAILY PRN metformin 1 tab PO QPM vvkzvgmv-xegcvdq-wubr-lutein 1 tab PO DAILY simvastatin 1 tab PO QPM vit C-zinc citrate-elderberry 45-3.75-50 mg ([employer]) 1 tab PO DAILY PFSH Medical History (Updated 01/23/24 @ 07:30 by Vernon Zambrano MD) Arthritis Elevated cholesterol Diabetes Surgical History S/P excision of lipoma (07/03/22) History of carpal tunnel release of both wrists Hx of tonsillectomy Hx of knee surgery Hx of cholecystectomy H/O colonoscopy Social History Are you a primary patient care associate to a significant other at home: No Do you presently have visiting nurse or other home services: No Alcohol intake: current Alcohol intake frequency: holidays/special occasions on ly Patient Tobacco Use Status: Never used Tobacco Physical Exam Extrem Other: Right knee examination shows that the surgical incisions are well healed, no erythema, mild crepitus with range of motion, minimal discomfort with range of motion Assessment & Plan Assessment & Plan (1) Right knee pain: Code(s): M25.561 - Pain in right knee Category: Medical Plan Ms. Frazier continues to do well after undergoing right knee arthroscopic surgery on 12/07/2023. She will continue going to formal physical therapy for now. She will gradually transition to a home exercise program. I will clear her to return to work once her discomfort has improved. She will contact me prior to her follow-up appointment in 3 months should any questions or concerns arise. Feel free to call me at any time should questions regarding her orthopedic management arise. Coding Level of Care Code Global (38882) Diagnoses Right knee pain M25.561
== END 2024-01-22 11:38 | disposition home or self-care (01) ==
PROVIDERS: PCP Internal Medicine; Visit Provider Orthopaedic Surgery
DX: M25.561 Pain in right knee (principal)
CPT/HCPCS: 99024

== ENCOUNTER 2024-02-13 11:22 | Outpatient (AMB) | payer OTHER, SELFPAY ==
--- NOTE | 2024-02-13 11:29 | A.OFFVIS_ITS ---
Intake Visit Reasons: 6 wk OV-Rt Knee 12/07/23 Intake Note: Deisi is a 63 year old female who presents today for a follow up visit status post right knee arthroscopy, DOS: 12/07/23. She reports mild to moderate intermittent discomfort in her right knee. She continues to go to formal physical therapy. She has not yet returned to work. Allergies No Known Allergies [No Known Allergies*] Allergy (Verified 02/13/24 11:31) Medication List - Last Reconciled 02/13/24 by Vernon Zambrano MD biotin 1,000 mcg PO DAILY cholecalciferol (vitamin D3) 25 mcg PO DAILY meloxicam 15 mg PO DAILY PRN metformin 1 tab PO QPM lhzjfpdu-paacllv-okka-lutein 1 tab PO DAILY simvastatin 1 tab PO QPM vit C-zinc citrate-elderberry 45-3.75-50 mg ([facility]) 1 tab PO DAILY PFSH Medical History (Updated 01/23/24 @ 07:30 by Vernon Zambrano MD) Arthritis Elevated cholesterol Diabetes Surgical History S/P excision of lipoma (07/03/22) History of carpal tunnel release of both wrists Hx of tonsillectomy Hx of knee surgery Hx of cholecystectomy H/O colonoscopy Social History Are you a primary healthcare financial analyst to a significant other at home: No Do you presently have visiting nurse or other home services: No Alcohol intake: current Alcohol intake frequency: holidays/special occasions only Patient Tobacco Use Status: Never used Tobacco Physical Exam Extrem Other: Right knee examination shows minimal crepitus with range of motion, mild discomfort with range of motion, no instability Assessment & Plan Assessment & Plan (1) Right knee pain: Code(s): M25.561 - Pain in right knee Category: Medical Plan Ms. Frazier continues to do fairly well after undergoing right knee arthroscopic surgery on 12/07/2023. The patient will continue going to formal physical therapy for now. She will gradually transition to a home exercise program. I will clear her to return to work over the next few weeks as discussed with her. She will contact me prior to her follow-up appointment in 2-3 months should any questions or concerns arise. Coding Level of Care Code Global (38688) Diagnoses Right knee pain M25.561
--- OUTSIDE RECORDS SUMMARY | 2024-02-19 18:05 | XMS_ITS | Patient Health Record ---
Author Organization [facility] Address [address] [place] [address] Care Team Providers Care Block Greaser Name Role Phone Bassem Mahajan MD Primary Care Provider UnavailJude Liao Unavailable [phone] ALLERGIES No Known Allergies REASON FOR REFERRAL No Information MEDICATIONS Medication SIG (Take, Route, Fr equency, Duration) Notes Start Date End Date Status metFORMIN HCl 500 MG Oral for 90 Active Simvastatin 20 MG 1 tablet in the even ing Orally Once a day Active Biotene/Calcium Acti ve Multi Vitamin Daily Active Vitamin D Active IMMUNIZATIONS Vaccine Route Administration Date Status Comme nts Influenza Unknown 02/09/2021 Administered SOCIAL HISTORY Sex Assigned At : Social History Observation Description Sex Assigned At Unknown PROBLEMS Problem Type ICD Code Onset Dates Problem Status W/U Status Risk SNOMED Code Notes Problem Encounter for screening for malignant neoplasm of colon (Z12.11) Active confirmed 053912229 Problem Encounter for screening for malignant neoplasm of rectum (Z12.12) Active confirmed Screening fo r malignant neoplasm of rectum (801420989) Problem History of adenomatous polyp of colon (Z86.010) Active confirmed 313596358 Problem Preprocedural examination (Z01.818) Active confirmed 12621205 Problem Diverticulosis of colon (K57.30) Active confirmed Diverticulosi s of colon (971671772) PLAN OF TREATMENT Pending Test Test Name Order Date Pathology 06/24/2021 Future Test Test Name Order Date COLONOSCOPY 07/28/2015 COLONOSCOPY 04/26/2021 Insurance Providers Payer Name Payer Address Payer Phone Subscriber Number Group Number Insured Name Patient Relationship to Insured Coverage Start Date Coverage End Date 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 [address] [place] [address] [id number] MOOK SETHI Self - patient is the insured MEDICAL (GENERAL) HISTORY Medical History History ICD Code Jul, 2010 Screening Colonosc opy-- tubular adenoma, hyperplastic polyp, internal hemorrhoids Hyperlipidemia Diet-controlled DM Arthritis in knees Denies GA,DM,CVA,Lung disease,renal dise ase Benign uterine biopsies Colonoscopy 02/2016 with a hyperplastic polyp Barium swallow 08/2020 with n o esophageal abnormality, but with some spondylosis of the cervical spine with some mild indentation of the posterior cervical esophageal wall, but without any esophageal obstruction Surgical History Surgery Date(Month/Year) Knee surgery Cholecystectomy Tonsillectomy Bilateral carpal tunnel
== END 2024-02-13 12:35 | disposition home or self-care (01) ==
PROVIDERS: PCP Internal Medicine; Visit Provider Orthopaedic Surgery
DX: M25.561 Pain in right knee (principal)
CPT/HCPCS: 99024

== ENCOUNTER → 2024-02-13 11:22 | Outpatient (BNVA) | payer OTHER, SELFPAY | PROVIDERS: PCP Internal Medicine; Visit Provider Orthopaedic Surgery ==

== ENCOUNTER 2024-02-26 14:00 | Outpatient (RCR) | payer OTHER, SELFPAY ==
--- NOTE | 2023-12-26 14:02 | MHC.PT.EP ---
[facility] [place] Office [place] Office [place] Office [address] Janell Perry [address] [phone] F: [phone] F: [phone] F: [phone] F: [phone] Physical Therapy Plan of Care Date of Evaluation: 12/26/23 Date of Surgery: 12/07/2023 Diagnosis: tear of medial meniscus, R knee Assessment: Patient is a 63 year old female presenting to PT s/p R knee arthroscopy 12/07/2023. She presents today with impairments in pain, ROM, hip strength, knee strength. 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 Clinical presentation today is most consistent with signs and sx associated with s/p R knee arthroscopy 12/07/2023 and pt will benefit from skilled PT 2 week x 4 weeks to address the following problems and impairments noted upon evaluation: pain, ROM, hip strength, knee strength. These problems limit the patient with the following functional activities: work, ADLs, ambulating, squatting, stair negotiation. The prescribed treatment plan of care is medically necessary. Co-morbidities of DM were identified and taken into considerations of plan of care. Pt was educated on HEP, role of PT, prognosis, POC. Frequency and Duration: The patient will be seen 2 x week x 4 weeks Short Term Goals: Pt will demonstrate symmetrical ROM of the knee in 2 weeks. Pt will demonstrate knee MMT strength 5/5 in 2 weeks. Pt will demonstrate hip MMT strength at least 4/5 in 2 weeks for improved lumbopelvic stability. Metal Trimmer Goals: Pt will demonstrate improved LEFI score by 9 points in 4 weeks for improved functional mobility. Pt will demonstrate ability to negotiate stairs with min to no pain in 4 weeks for improved access to her home. Pt will demonstrate ability to complete squat with min to no pain in 4 weeks for improved tolerance to ADLs and work. Treatment Plan: Modalities to reduce pain, spasms and effusion. Manual therapy to restore motion and function. Therapeutic exercise to improve strength and flexibility. Neuromuscular re-education for posture and balance. Therapeutic activities to return to functional activities of daily living. Electronically signed by: Maddie Ramos, PT, DPT, ATC Please sign and return to therapist. Thank you for your referral.
--- NOTE | 2024-02-26 14:41 | MHC.PT.DC ---
[facility] [place] Office [place] Office [place] Office [address] Janell Perry [address] [phone] F: [phone] F: [phone] F: [phone] F: [phone] Physical Therapy Discharge Report Diagnosis: tear of medial meniscus, R knee Date of Surgery: 12/07/2023 Date of Evaluation: 12/26/23 Date of Discharge: 02/26/24 Treatments to Date: 20 Cancellations to Date: 0 No Shows to Date: 0 Discharge Status: Achieved Goals Improved Function Independent with HEP Discharge Summary: 02/26/2024: Pt has made progress since start of care. She is unfortunately however continuing to churchill ongoing anterior medial knee pain. Functionally she is tolerating more activity but is limited with the medial knee pain she has been dealing with. She also is still lacking a few degrees on the R compared to the left for flexion but this does not limit her function. At this time max benefits of PT have been provided and skilled PT is no longer indicated. I recommend continuing with her HEP at home as tolerated and continuing to follow up with her surgeon as scheduled. Electronically signed by: Maddie Ramos, PT, DPT, ATC Please sign and return to therapist. Thank you for your referral.
== END 2024-02-26 14:41 | disposition home or self-care (01) ==
LOC: HO.PTCHIC 14:00
PROVIDERS: PCP Internal Medicine; Visit Provider Physician Assistant
DX: S83.241D Other tear of medial meniscus, current injury, right knee, subsequent encounter (principal); M17.11 Unilateral primary osteoarthritis, right knee
CPT/HCPCS: 97110; 97140; 97161; 97530

== ENCOUNTER 2024-04-22 14:43 | Outpatient (AMB) | payer OTHER, SELFPAY ==
--- NOTE | 2024-04-22 14:55 | A.OFFVIS_ITS ---
Vital Signs 04/22/24 15:00 Height 5 ft 7 in Weight 250 lb 9 oz BMI 39.2 Intake Visit Reasons: Right knee pain Intake Note: Deisi is a 63 year old female who presents with complaints of progressively worsening right knee pain. She describes her pain as sharp in nature. She did undergo right knee arthroscopic surgery last year. She got mild relief from that procedure. She has had cortisone injections in the past which gave her minimal relief. She has not had a viscosupplementation injection. She has tried Tylenol and anti-inflammatory medicines which gave her only mild relief. She wishes to hold off on total knee replacement surgery for as long as possible. Allergies No Known Allergies [No Known Allergies*] Allergy (Verified 04/22/24 14:56) Medication List - Last Reconciled 04/22/24 by Vernon Zambrano MD biotin 1,000 mcg PO DAILY cholecalciferol (vitamin D3) 25 mcg PO DAILY meloxicam 15 mg PO DAILY PRN metformin 1 tab PO QPM otlxskaz-cqbdqnh-hjgr-lutein 1 tab PO DAILY simvastatin 1 tab PO QPM vit C-zinc citrate-elderberry 45-3.75-50 mg ([employer]) 1 tab PO DAILY PFSH Medical History (Updated 04/22/24 @ 15:28 by Vernon Zambrano MD) Arthritis Elevated cholesterol Diabetes Surgical History S/P excision of lipoma (07/03/22) History of carpal tunnel release of both wrists Hx of tonsillectomy Hx of knee surgery Hx of cholecystectomy H/O colonoscopy Social History Are you a primary managed care manager to a significant other at home: No Do you presently have visiting nurse or other home services: No Alcohol intake: current Alcohol intake frequency: holidays/special occasions only Patient Tobacco Use Status: Never used Tobacco Physical Exam Vital Signs: BMI result Body Mass Index 39.2 Const Other: Well-nourished well-developed very friendly female awake alert and oriented x3 in no acute distress Extrem Other: Right knee examination shows a minimal effusion, palpable crepitus with range of motion, pain with range of motion, no instability Results Reviewed Results Reviewed: X-rays of the patient's right knee taken previously show joint space narrowing, subchondral sclerosis, no acute bony abnormalities Assessment & Plan Assessment & Plan (1) Right knee pain: Code(s): M25.561 - Pain in right knee Category: Medical (2) Osteoarthritis of right knee: Code(s): M17.11 - Unilateral primary osteoarthritis, right knee Category: Medical Plan Ms. Frazier presents with right knee pain due to osteoarthritis. I had a lengthy discussion with the patient regarding the treatment options. She wishes to hold off on total knee replacement surgery for as long as possible. I agree with this plan. I will see whether or not the patient's insurance company will cover a viscosupplementation injection. I will see her back once the injection is available. Feel free to call me at any time should questions regarding her orthopedic management arise. I spent 20 minutes in reviewing the patient's records and imaging studies, seeing the patient and documenting in the medical record. Coding Level of Care Code Est Pt Level 3 (95621) Complex EM visit Add On G2211 Diagnoses Right knee pain M25.561 Osteoarthritis of right knee M17.11
[2024-04-22 15:00] VITALS: BMI 39.2
--- OUTSIDE RECORDS SUMMARY | 2024-04-22 15:36 | XMS_ITS | Patient Health Record ---
Author Organization [facility] Address [address] [place] [address] Care Team Providers Care Manager Operations Research Name Role Phone Bassem Mahajan MD Primary Care Provider UnavailJude Liao Unavailable [phone] ALLERGIES No Known Allergies REASON FOR REFERRAL [...] malignant neoplasm of colon (Z12.11) Active confirmed [id number] Problem Encounter for screening for malignant neoplasm of rectum (Z12.12) Active confirmed Screening fo r malignant neoplasm of rectum (396296888) Problem History of adenomatous polyp of colon (Z86.010) Active confirmed 268897529 Problem Preprocedural examination (Z01.818) Active confirmed 46346127 Problem Diverticulosis of colon (K57.30) Active confirmed Diverticulosi s of colon (905578545) PLAN OF TREATMENT Pending Test Test Name Order Date Pathology 06/24/2021 Future Test Test Name Order Date COLONOSCOPY 07/28/2015 COLONOSCOPY 04/26/2021 Insurance Providers Payer Name Payer Address Payer Phone Subscriber Number Group Number Insured Name Patient Relationship to Insured Coverage Start Date Coverage End Date 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 [address] [place] [address] [id number] MOOK SETHI Self - patient is the insured MEDICAL (GENERAL) HISTORY Medical History History ICD Code Jul, 2010 Screening Colonosc opy-- tubular adenoma, hyperplastic polyp, internal hemorrhoids Hyperlipidemia Diet-controlled DM Arthritis in knees Denies CA,DM,CVA,Lung disease,renal dise ase Benign uterine biopsies Colonoscopy 02/2016 with a hyperplastic polyp Barium swallow 08/2020 with n o esophageal abnormality, but with some spondylosis of the cervical spine with some mild indentation of the posterior cervical esophageal wall, but without any esophageal obstruction Surgical History Surgery Date(Month/Year) Knee surgery Cholecystectomy Tonsillectomy Bilateral carpal tunnel
== END 2024-04-22 15:21 | disposition home or self-care (01) ==
PROVIDERS: PCP Internal Medicine; Visit Provider Orthopaedic Surgery
DX: M17.11 Unilateral primary osteoarthritis, right knee (principal)
CPT/HCPCS: 99213

== ENCOUNTER 2024-05-22 14:45 | Outpatient (AMB) | payer OTHER, SELFPAY ==
[2024-05-22 14:48] VITALS: BMI 39.2
--- NOTE | 2024-05-22 14:48 | A.OFFVIS_ITS ---
Vital Signs 05/22/24 14:48 Height 5 ft 7 in Weight 250 lb 9 oz BMI 39.2 Intake Visit Reasons: Inj-Right Knee Durolane Intake Note: Deisi is a 63 year old female who presents with complaints of right knee pain. The patient did undergo right knee arthroscopic surgery on 12/07/2023. She got minimal relief from the procedure. She takes meloxicam which gives her only mild relief. She wishes to hold off on total knee replacement surgery for as long as possible. Allergies No Known Allergies [No Known Allergies*] Allergy (Verified 05/22/24 14:49) Medication List - Last Reconciled 05/23/24 by Vernon Zambrano MD biotin 1,000 mcg PO DAILY cholecalciferol (vitamin D3) 25 mcg PO DAILY meloxicam 15 mg PO DAILY PRN metformin 1 tab PO QPM vakpsmec-efsswvr-qcfj-lutein 1 tab PO DAILY simvastatin 1 tab PO QPM vit C-zinc citrate-elderberry 45-3.75-50 mg ([employer]) 1 tab PO DAILY PFSH Medical History (Updated 04/22/24 @ 15:28 by Vernon Zambrano MD) Arthritis Elevated cholesterol Diabetes Surgical History S/P excision of lipoma (07/03/22) History of carpal tunnel release of both wrists Hx of tonsillectomy Hx of knee surgery Hx of cholecystectomy H/O colonoscopy Social History Are you a primary care transition coordinator to a significant other at home: No Do you presently have visiting nurse or other home services: No Alcohol intake: current Alcohol intake frequency: holidays/special occasions only Patient Tobacco Use Status: Never used Tobacco Physical Exam Vital Signs: BMI result Body Mass Index 39.2 Extrem Other: Right knee examination shows that the surgical incisions are well healed, no erythema, palpable crepitus with range of motion, pain with range of motion Office Procedures AMB Joint Injection/Aspiration Joint Injection/Aspiration Primary Site: right knee Prep: site was prepped using aseptic technique Injected: 60 mg of (Durolane viscosupplementation) and 1% plain lidocaine Procedure: The patient tolerated the procedure well Coding 72207 - Large joint Procedure code (CPT) selection complete Assessment & Plan Assessment & Plan (1) Osteoarthritis of right knee: Code(s): M17.11 - Unilateral primary osteoarthritis, right knee Category: Medical Plan Ms. Frazier presents with right knee pain due to osteoarthritis. The risks and benefits of a Durolane viscosupplementation injection were discussed at length with the patient. The patient wished to proceed. She tolerated the injection well. She will continue with her activity modifications. She will contact me prior to her follow-up appointment in 3 months should any questions or concerns arise. I spent 20 minutes in reviewing the patient's records and imaging studies, seeing the patient and documenting in the medical record. Orders: Orders AMB Joint Injection/Aspiration 05/22/24 M17.11 - Unilateral primary osteoarthritis, right knee Coding Level of Care Code Est Pt Level 3 (44800) Complex EM visit Add On G2211 Diagnoses Osteoarthritis of right knee M17.11 CPT Codes Coding - 25534 Large joint: 05057 - Large joint ([id number])
--- OUTSIDE RECORDS SUMMARY | 2024-05-22 18:33 | XMS_ITS | Patient Health Record ---
Author Organization [facility] Address [address] [place] [address] Care Team Providers Care Cafe Or Restaurant Manager Name Role Phone Bassem Mahajan MD Primary Care Provider UnavailJude Liao Unavailable [phone] Allergies No Known Allergies Reason For Referral No Information Medications Medication SIG (Take, Route, Fr equency, Duration) Notes Start Date End Date Status metFORMIN HCl 500 MG Oral for 90 Active Simvastatin 20 MG 1 tablet in the even ing Orally Once a day Active Biotene/Calcium Acti ve Multi Vitamin Daily Active Vitamin D Active Immunizations Vaccine Route Administration Date Status Comme nts Influenza Unknown 02/09/2021 Administered Problems Problem Type SNOMED Code ICD Code Onset Dates Problem Status W/U Status Risk Notes Problem 007531612 Encounter for screening for malignant neoplasm of colon (Z12.11) Active confirmed Problem 853475992 History of adenomatous polyp of colon (Z86.010) Active confirmed Problem Screening for malignant neoplasm of rectum (040128034) Encounter for screening for malignant neoplasm of rectum (Z12.12) Active confirmed Problem 34642570 Preprocedural examination (Z01.818) Active confirmed Problem Diverticulosis of colon (187602552) Diverticulosis of colon (K57.30) Active confirmed Plan Of Treatment Pending Test Test Name Order Date Pathology 06/24/2021 Future Test Test Name Order Date COLONOSCOPY 07/28/2015 COLONOSCOPY 04/26/2021 Insurance Providers Payer Name Payer Address Payer Phone Subscriber Number Group Number Insured Name Patient Relationship to Insured Coverage Start Date Coverage End Date 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 [employer] P[address] [address] [place] [address] [id number] MOOK SETHI Self - patient is the insured Medical (General) History Medical History History ICD Code Jul, 2010 Screening Colonosc opy-- tubular adenoma, hyperplastic polyp, internal hemorrhoids Hyperlipidemia Diet-controlled DM Arthritis in knees Denies CT,DM,CVA,Lung disease,renal dise ase Benign uterine biopsies Colonoscopy 02/2016 with a hyperplastic polyp Barium swallow 08/2020 with n o esophageal abnormality, but with some spondylosis of the cervical spine with some mild indentation of the posterior cervical esophageal wall, but without any esophageal obstruction Surgical History Surgery Date(Month/Year) Knee surgery Cholecystectomy Tonsillectomy Bilateral carpal tunnel
== END 2024-05-22 15:13 | disposition home or self-care (01) ==
LOC: HO.HOS 14:46
PROVIDERS: PCP Internal Medicine; Visit Provider Orthopaedic Surgery
DX: M17.11 Unilateral primary osteoarthritis, right knee (principal)
CPT/HCPCS: 20610; 99213

== ENCOUNTER → 2024-05-22 14:45 | Outpatient (BNVA) | payer OTHER, SELFPAY | PROVIDERS: PCP Internal Medicine; Visit Provider Orthopaedic Surgery | DX: M17.11 Unilateral primary osteoarthritis, right knee (principal) | CPT/HCPCS: 20610; J2003; J7318 ==

== ENCOUNTER 2024-06-24 11:30 | Outpatient (REF) | payer OTHER, SELFPAY ==
--- NOTE | ~2024-06-24 | MM_ITS ---
EXAMINATION: MM SCREENING DIGITAL BREAST TOMOSYNTHESIS, BILATERAL CLINICAL INFORMATION: Screening. Asymptomatic. COMPARISON: Mammography: 06/15/2023, 03/28/2022, 02/22/2021, 02/17/2020, 12/04/2018, 10/10/2017, and dating back to 2013. TECHNIQUE: Digital breast tomosynthesis is performed in both the craniocaudal and mediolateral oblique views along with computer-aided detection (CAD). Synthesized 2D images are generated from the tomosynthesis. In addition to standard views, added bilateral CC full-field views, and bilateral MLO full field views were included due to breast size. FINDINGS: There are scattered areas of fibroglandular density (ACR BI-RADS breast composition Category b). There are no suspicious masses, suspicious grouped calcifications, or areas of architectural distortion in either breast. Fibronodular parenchymal pattern with scattered stable asymmetries are similar to prior studies. There are intramammary nodes again seen bilateral posterior upper outer quadrants. No significant changes. There are no skin or axillary abnormalities. MM/MM tomosynthesis screening BI IMPRESSION: -No mammographic evidence of malignancy. -Stable benign parenchymal asymmetries. No change. ASSESSMENT: BI-RADS BI-RADS 2 - Benign Findings RECOMMENDATION: Routine annual mammography screening. 1 year F/U This examination should not preclude the clinical evaluation of a suspicious palpable abnormality. This patient''s information was entered into a reminder system with a target due date for their next mammogram. Electronically signed by: David Thornton MD 06/24/2024 01:14 PM EDT
--- OUTSIDE RECORDS SUMMARY | 2024-06-24 14:17 | XMS_ITS | Patient Health Record ---
Author Organization [facility] Address [address] [place] [address] Care Team Providers Care Costume Cutter Name Role Phone Bassem Mahajan MD Primary Care Provider UnavailJude Liao Unavailable [phone] Allergies No Known Allergies Reason For Referral [...] Problem Status W/U Status Risk Notes Problem 278631939 Encounter for screening for malignant neoplasm of colon (Z12.11) Active confirmed Problem 870686855 History of adenomatous polyp of colon (Z86.010) Active confirmed Problem Screening for malignant neoplasm of rectum (150314118) Encounter for screening for malignant neoplasm of rectum (Z12.12) Active confirmed Problem 75585051 Preprocedural examination (Z01.818) Active confirmed Problem Diverticulosis of colon (486086081) Diverticulosis of colon (K57.30) Active confirmed Plan Of Treatment Pending Test Test Name Order Date Pathology 06/24/2021 Future Test Test Name Order Date COLONOSCOPY 07/28/2015 COLONOSCOPY 04/26/2021 Insurance Providers Payer Name Payer Address Payer Phone Subscriber Number Group Number Insured Name Patient Relationship to Insured Coverage Start Date Coverage End Date 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 [employer] P[address] [address] [place] [address] [id number] MOOK SETHI Self - patient is the insured Medical (General) History Medical History History ICD Code Jul, 2010 Screening Colonosc opy-- tubular adenoma, hyperplastic polyp, internal hemorrhoids Hyperlipidemia Diet-controlled DM Arthritis in knees Denies [place],DM,CVA,Lung disease,renal dise ase Benign uterine biopsies Colonoscopy 02/2016 with a hyperplastic polyp Barium swallow 08/2020 with n o esophageal abnormality, but with some spondylosis of the cervical spine with some mild indentation of the posterior cervical esophageal wall, but without any esophageal obstruction Surgical History Surgery Date(Month/Year) Knee surgery Cholecystectomy Tonsillectomy Bilateral carpal tunnel
== END 2024-06-24 11:31 | disposition home or self-care (01) ==
LOC: HO.MAMMO 11:30
PROVIDERS: Visit Provider Internal Medicine
DX: Z12.31 Encounter for screening mammogram for malignant neoplasm of breast (principal)
CPT/HCPCS: 77063; 77067

== ENCOUNTER → 2024-06-24 12:00 | Outpatient (BNV) | payer OTHER, SELFPAY | PROVIDERS: Visit Provider Radiology Diagnostic Radiology | DX: Z12.31 Encounter for screening mammogram for malignant neoplasm of breast (principal) | CPT/HCPCS: 77063; 77067 ==

== ENCOUNTER 2024-08-21 14:38 | Outpatient (AMB) | payer OTHER, SELFPAY ==
--- NOTE | 2024-08-21 14:41 | MHC.OFFVIS ---
Intake Visit Reasons: OV-Durolane, right knee follow up-last 05/22/24 Intake Note: Deisi is a 63 year old female who presents for follow up of her right knee pain. At her last visit on 05/22/24 she was given a right knee Durolane injection. Patient reports the injection did not help. She would like to have a right knee steroid injection today. She has tried Tylenol which gives her mild relief. She wishes to hold off on right total knee replacement surgery if at all possible. Allergies No Known Allergies [No Known Allergies*] Allergy (Verified 08/21/24 14:41) Medication List - Last Reconciled 08/21/24 by Vernon Zambrano MD biotin 1,000 mcg PO DAILY cholecalciferol (vitamin D3) 25 mcg PO DAILY meloxicam 15 mg PO DAILY PRN metformin 1 tab PO QPM fbmatrhc-bbksjwi-kfvr-lutein 1 tab PO DAILY semaglutide (Ozempic) mg subcut simvastatin 1 tab PO QPM vit C-zinc citrate-elderberry 45-3.75-50 mg (iProcure) 1 tab PO DAILY PFSH Medical History (Updated 04/22/24 @ 15:28 by Vernon Zambrano MD) Arthritis Elevated cholesterol Diabetes Surgical History S/P excision of lipoma (07/03/22) History of carpal tunnel release of both wrists Hx of tonsillectomy Hx of knee surgery Hx of cholecystectomy H/O colonoscopy Social History Are you a primary healthcare business analyst to a significant other at home: No Do you presently have visiting nurse or other home services: No Alcohol intake: current Alcohol intake frequency: holidays/special occasions only Patient Tobacco Use Status: Never used Tobacco Physical Exam Const Other: Well-nourished well-developed very friendly female awake alert and oriented x3 in no acute distress Extrem Other: Right knee examination shows a minimal effusion, palpable crepitus with range of motion, pain with range of motion, no instability Office Procedures AMB Joint Injection/Aspiration Joint Injection/Aspiration Primary Site: right knee Prep: site was prepped using aseptic technique Injected: 40 mg of, DepoMedrol and 1% plain lidocaine Procedure: The patient tolerated the procedure well Coding - Large joint Procedure code (CPT) selection complete Results Reviewed Results Reviewed: X-rays of the patient's right knee taken previously show joint space narrowing, subchondral sclerosis, no acute bony abnormalities Assessment & Plan Assessment & Plan (1) Osteoarthritis of right knee: Code(s): M17.11 - Unilateral primary osteoarthritis, right knee Category: Medical Plan Ms. Frazier presents with progressively worsening right knee pain due to degenerative joint disease. The risks and benefits of a right knee cortisone injection were discussed at length with the patient. The patient wished to proceed. She tolerated the injection well. She will continue with her home exercise program. She will contact me prior to her follow-up appointment in 3 months should any questions or concerns arise. I did give her a prescription for Celebrex to help with her discomfort. Feel free to call me at any time should questions regarding her orthopedic management arise. I spent 22 minutes in reviewing the patient's records and imaging studies, seeing the patient and documenting in the medical record. Orders: Orders AMB Joint Injection/Aspiration Today M17.11 - Unilateral primary osteoarthritis, right knee Medications: New celecoxib (Celebrex) 200 mg PO DAILY PRN 30 caps 3RF pain Coding Level of Care Code Est Pt Level 3 (72527) Complex EM visit Add On G2211 Diagnoses Osteoarthritis of right knee M17.11 CPT Codes Coding - Large joint: 05227 - Large joint ([id number])
--- OUTSIDE RECORDS SUMMARY | 2024-08-21 17:12 | XMS_ITS | Patient Health Record ---
Author Organization [facility] Address [address] [place] [address] Care Team Providers Care Smoking Pipe Repairer Name Role Phone Bassem Mahajan MD Primary Care Provider UnavailJude Liao Unavailable [phone] Allergies No Known Allergies Reason For Referral [...] Problem Status W/U Status Risk Notes Problem 399537800 Encounter for screening for malignant neoplasm of colon (Z12.11) Active confirmed Problem 752758716 History of adenomatous polyp of colon (Z86.010) Active confirmed Problem Screening for malignant neoplasm of rectum (771420630) Encounter for screening for malignant neoplasm of rectum (Z12.12) Active confirmed Problem 92722899 Preprocedural examination (Z01.818) Active confirmed Problem Diverticulosis of colon (697600018) Diverticulosis of colon (K57.30) Active confirmed Plan Of Treatment Pending Test Test Name Order Date Pathology 06/24/2021 Future Test Test Name Order Date COLONOSCOPY 07/28/2015 COLONOSCOPY 04/26/2021 Insurance Providers Payer Name Payer Address Payer Phone Subscriber Number Group Number Insured Name Patient Relationship to Insured Coverage Start Date Coverage End Date 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
== END 2024-08-21 15:14 | disposition home or self-care (01) ==
LOC: HO.HOS 14:39
PROVIDERS: PCP Internal Medicine; Visit Provider Orthopaedic Surgery
DX: M17.11 Unilateral primary osteoarthritis, right knee (principal)
CPT/HCPCS: 20610; 99213

== ENCOUNTER → 2024-08-21 14:38 | Outpatient (BNVA) | payer OTHER, SELFPAY | PROVIDERS: PCP Internal Medicine; Visit Provider Orthopaedic Surgery | DX: M17.11 Unilateral primary osteoarthritis, right knee (principal) | CPT/HCPCS: 20610; J1010; J2003 ==

== ENCOUNTER → 2024-08-25 10:35 | Outpatient (REF) | payer OTHER, SELFPAY ==
--- NOTE | 2024-08-25 10:45 | CA_ITS ---
Acquisition Time: 2024-08-25 10:55:38 Total Exercise Time: 00:05:55 Test Indications: Medications: Protocol: SANDY Max HR: 150 BPM 96% of Pred: 156 BPM Max BP: 140/80 mmHG Max Work Load: 5.0 METS Exercise stress test with exercise 5 mins 55 secs of Sandy Protocol, held at Stage 1 due to knee discomfort, increased incline to 12%, achieving 92% MPHR, without any chest pain, without any arrythmias, with normotensive response to exercise. Without EKG changes meeting criteria for ischemia. In recovery, pt feeling back to baseline. Echo images obtained by tech at rest and post peak exercise. Definity contrast utilized. Test reviewed with Dr. Pruitt. Referred By: Bassem Mahajan Electronically Signed By: Manav King
--- OUTSIDE RECORDS SUMMARY | 2024-08-25 11:51 | XMS_ITS | Patient Health Record ---
Author Organization [facility] Address [address] [place] [address] Care Team Providers Care Research Director Name Role Phone Bassem Mahajan MD Primary Care Provider UnavailJude Liao Unavailable [phone] Allergies No Known Allergies Reason For Referral [...] Problem Status W/U Status Risk Notes Problem 725219149 Encounter for screening for malignant neoplasm of colon (Z12.11) Active confirmed Problem 140213352 History of adenomatous polyp of colon (Z86.010) Active confirmed Problem Screening for malignant neoplasm of rectum (012461207) Encounter for screening for malignant neoplasm of rectum (Z12.12) Active confirmed Problem 83818409 Preprocedural examination (Z01.818) Active confirmed Problem Diverticulosis of colon (211238082) Diverticulosis of colon (K57.30) Active confirmed Plan Of Treatment Pending Test Test Name Order Date Pathology 06/24/2021 Future Test Test Name Order Date COLONOSCOPY 07/28/2015 COLONOSCOPY 04/26/2021 Insurance Providers Payer Name Payer Address Payer Phone Subscriber Number Group Number Insured Name Patient Relationship to Insured Coverage Start Date Coverage End Date 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 [employer]AH P.[address] [address] [place] [address] [id number] MOOK SETHI Self - patient is the insured Medical (General) History Medical History History ICD Code Jul, 2010 Screening Colonosc opy-- tubular adenoma, hyperplastic polyp, internal hemorrhoids Hyperlipidemia Diet-controlled DM Arthritis in knees Denies [place],DM,CVA,Lung disease,renal dise ase Benign uterine biopsies Colonoscopy 02/2016 with a hyperplastic polyp Barium swallow 08/2020 with n o esophageal abnormality, but with some spondylosis of the cervical spine with some mild indentation of the posterior cervical esophageal wall, but without any esophageal obstruction Surgical History Surgery Date(Month/Year) Knee surgery Cholecystectomy Tonsillectomy Bilateral carpal tunnel
== END ==
LOC: HO.CARD 10:35
PROVIDERS: Visit Provider Internal Medicine
DX: I47.20 Ventricular tachycardia, unspecified (principal)
CPT/HCPCS: 93350; Q9957

== ENCOUNTER → 2024-08-25 10:45 | Outpatient (BNV) | payer OTHER, SELFPAY | DX: I47.20 Ventricular tachycardia, unspecified (principal) | CPT/HCPCS: 93016; 93018; 93350; 93352 ==

== ENCOUNTER 2024-10-09 13:39 | Outpatient (AMB) | payer OTHER, SELFPAY ==
--- NOTE | 2024-10-09 13:44 | MHC.OFFVIS ---
Vital Signs 10/09/24 13:53 Height 5 ft 7 in Weight 240 lb BMI 37.6 BP 128/69 Blood Pressure Location Lt brachial Position Sitting Pulse 101 H Intake Visit Reasons: hematoma right thigh Intake Note: Patient is seen in office for evaluation of a hematoma of the right thigh. Pt c/o: fell down and injured her right thigh and forehead on uneven cement down some steps, about a month aqgo, has a large lump on the right thigh and bruising, numbness L.OV:(07/18/22) post exc. 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 Operator Required: No Accompanied by: Self / Same As Patient Allergies No Known Allergies (No Known Allergies*) Allergy (Verified 10/09/24 13:55) Medication List - Last Reconciled 10/09/24 by Bassem Roth MD biotin 1,000 mcg PO DAILY celecoxib (Celebrex) 200 mg PO DAILY PRN cholecalciferol (vitamin D3) 25 mcg PO DAILY meloxicam 15 mg PO DAILY PRN metformin 1 tab PO QPM zlivupae-gagnmsk-qehj-lutein 1 tab PO DAILY semaglutide (Ozempic) mg subcut simvastatin 1 tab PO QPM HPI Comments Details: 64-year-old female patient returning after a fall approximately 1 month ago out of state resulting in a large bruise on the right upper outer thigh as well as a laceration over the right eyebrow. She was evaluated in the emergency department and evaluated with a CT of the head and neck. She underwent repair of the laceration which healed fine. She now has a large lump over the right hip which she feels may be a hematoma. The bruising has subsequently resolved however she continues to feel a large lump which is visible through her clothing. She denies any significant pain with palpation of the collection. She denies any necrotic changes in the overlying skin. [facility] Medical History Arthritis Elevated cholesterol Diabetes Surgical History S/P excision of lipoma (07/03/22) History of carpal tunnel release of both wrists Hx of tonsillectomy Hx of knee surgery Hx of cholecystectomy H/O colonoscopy Social History Are you a primary day care center director to a significant other at home: No Do you presently have visiting nurse or other home services: No Alcohol intake: current Alcohol intake frequency: holidays/special occasions only Patient Tobacco Use Status: Never used Tobacco Review of Systems Const All systems reviewed & are unremarkable except as noted in HPI and below Physical Exam Vital Signs: Last Vital Signs Pulse 101 H 10/09/24 13:53 BP 128/69 10/09/24 13:53 BMI result Body Mass Index 37.6 Const General: cooperative and no acute distress Nutritional Appearance: well nourished Orientation/consciousness: patient oriented x3 Limitations: no limitations HEENT Head: Yes normocephalic and Yes atraumatic Ears: hearing grossly normal bilaterally Resp Effort & Inspection: normal respiratory effort, no audible wheezes, no cough and no respiratory distress Cardio Jugular venous distension: no JVD GI Inspection: Yes normal to inspection Skin Other: Warm, dry, no rash Neuro General: patient oriented x3 Extrem General: Yes no clubbing, cyanosis or edema Upper/lower leg/hip images:  1. Area of swelling with fluctuance to palpation measuring approximately 10 cm in diameter. No evidence of overlying infection or necrosis. Findings are consistent with either a seroma or hematoma. Assessment & Plan Assessment & Plan (1) Hematoma: Code(s): T14.8XXA - Other injury of unspecified body region, initial encounter Category: Medical Plan 64-year-old female patient status post fall one-month ago with resulting area of swelling in the right upper lateral thigh. On examination this appears fluctuant suggestive of an underlying hematoma/seroma. I recommended further evaluation with ultrasound. If this is a seroma or liquified blood, ultrasound-guided aspiration may be possible otherwise surgical drainage may be required. I will call her with the results of the ultrasound once available. Orders: Orders US Extremity Nonvas Limited RT Today T14.8XXA - Other injury of unspecified body region, initial encounter Coding Level of Care Code Est Pt Level 3 (16521) Diagnoses Hematoma T14.8XXA
[2024-10-09 13:53] VITALS: BP 128/69; PULSE 101; BMI 37.6
--- OUTSIDE RECORDS SUMMARY | 2024-10-09 13:55 | XMS_ITS | Patient Health Record ---
Author Organization [facility] Address [address] [place] [address] Care Team Providers Care Obgyn Nurse Name Role Phone Bassem Mahajan MD Primary Care Provider UnavailJude Liao Unavailable [phone] Allergies No Known Allergies Reason For Referral [...] Problem Status W/U Status Risk Notes Problem 179249232 Encounter for screening for malignant neoplasm of colon (Z12.11) Active confirmed Problem 461736817 History of adenomatous polyp of colon (Z86.010) Active confirmed Problem Screening for malignant neoplasm of rectum (171806306) Encounter for screening for malignant neoplasm of rectum (Z12.12) Active confirmed Problem 29691420 Preprocedural examination (Z01.818) Active confirmed Problem Diverticulosis of colon (633128826) Diverticulosis of colon (K57.30) Active confirmed Plan Of Treatment Pending Test Test Name Order Date Pathology 06/24/2021 Future Test Test Name Order Date COLONOSCOPY 07/28/2015 COLONOSCOPY 04/26/2021 Insurance Providers Payer Name Payer Address Payer Phone Subscriber Number Group Number Insured Name Patient Relationship to Insured Coverage Start Date Coverage End Date 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 [employer]AH P.[address] [address] [place] [address] [id number] MOOK SETHI Self - patient is the insured Medical (General) History Medical History History ICD Code Jul, 2010 Screening Colonosc opy-- tubular adenoma, hyperplastic polyp, internal hemorrhoids Hyperlipidemia Diet-controlled DM Arthritis in knees Denies [place],DM,CVA,Lung disease,renal dise ase Benign uterine biopsies Colonoscopy 02/2016 with a hyperplastic polyp Barium swallow 08/2020 with n o esophageal abnormality, but with some spondylosis of the cervical spine with some mild indentation of the posterior cervical esophageal wall, but without any esophageal obstruction Surgical History Surgery Date(Month/Year) Knee surgery Cholecystectomy Tonsillectomy Bilateral carpal tunnel
== END 2024-10-09 14:00 | disposition home or self-care (01) ==
LOC: HO.HGS 13:40
PROVIDERS: Visit Provider Surgery
DX: S70.11XA Contusion of right thigh, initial encounter (principal)
CPT/HCPCS: 99213

== ENCOUNTER 2024-10-10 11:30 | Outpatient (REF) | payer OTHER, SELFPAY ==
--- NOTE | ~2024-10-10 | US_ITS ---
EXAMINATION: US EXTREMITY, NONVASCULAR CLINICAL INFORMATION: Hematoma right upper thigh laterally status post fall one month prior. COMPARISON: None relevant. TECHNIQUE: Grayscale and color Doppler ultrasound of the right lateral upper thigh was performed in the region of concern as indicated by the patient. FINDINGS: Within the area of concern, right upper lateral thigh, there is a large mildly complex fluid collection with a few internal thin septations, predominantly anechoic with some floating specular echoes, measuring 13.2 x 3.9 x 17.2 cm. No mural nodularity or other concerning finding. This most consistent with a subacute resolving hematoma. US/US Extremity Nonvas Limited RT IMPRESSION: 1. Subacute resolving hematoma in the right lateral upper thigh measuring 13.2 x 3.9 x 17.2 cm. No concerning associated abnormalities. Electronically signed by: David Thornton MD 10/10/2024 11:59 AM EDT
--- OUTSIDE RECORDS SUMMARY | 2024-10-10 11:34 | XMS_ITS | Patient Health Record ---
Author Organization [facility] Address [address] [place] [phone] Care Team Providers Care Hatchery Laborer Name Role Phone Bassem Mahajan MD Primary Care Provider UnavailJude Liao Unavailable [phone] Allergies No Known Allergies Reason For Referral [...] Problem Status W/U Status Risk Notes Problem [id number] Encounter for screening for malignant neoplasm of colon (Z12.11) Active confirmed Problem 660281435 History of adenomatous polyp of colon (Z86.010) Active confirmed Problem Encounter for screening for malignant neoplasm of rectum (Z12.12) Active confirmed Problem 02694480 Preprocedural examination (Z01.818) Active confirmed Problem Diverticulosis of colon (761307580) Diverticulosis of colon (K57.30) Active confirmed Plan Of Treatment Pending Test Test Name Order Date Pathology 06/24/2021 Future Test Test Name Order Date COLONOSCOPY 07/28/2015 COLONOSCOPY 04/26/2021 Insurance Providers Payer Name Payer Address Payer Phone Subscriber Number Group Number Insured Name Patient Relationship to Insured Coverage Start Date Coverage End Date [employer]UE [employer] [address] [address] [place] [address] [id number] MOOK SETHI Self - patient is the insured Medical (General) History Medical History History ICD Code Jul, 2010 Screening Colonosc opy-- tubular adenoma, hyperplastic polyp, internal hemorrhoids Hyperlipidemia Diet-controlled DM Arthritis in knees Denies NC,DM,CVA,Lung disease,renal dise ase Benign uterine biopsies Colonoscopy 02/2016 with a hyperplastic polyp Barium swallow 08/2020 with n o esophageal abnormality, but with some spondylosis of the cervical spine with some mild indentation of the posterior cervical esophageal wall, but without any esophageal obstruction Surgical History Surgery Date(Month/Year) Knee surgery Cholecystectomy Tonsillectomy Bilateral carpal tunnel
== END 2024-10-10 11:31 | disposition home or self-care (01) ==
LOC: HO.US 11:30
PROVIDERS: Visit Provider Surgery
DX: S70.01XA Contusion of right hip, initial encounter (principal); W19.XXXA Unspecified fall, initial encounter
CPT/HCPCS: 76882

== ENCOUNTER → 2024-10-10 11:33 | Outpatient (BNV) | payer OTHER, SELFPAY | PROVIDERS: Visit Provider Radiology Diagnostic Radiology | DX: M79.81 Nontraumatic hematoma of soft tissue (principal) | CPT/HCPCS: 76882 ==

== ENCOUNTER 2024-10-16 10:25 | Outpatient (REF) | payer OTHER, SELFPAY ==
--- NOTE | ~2024-10-16 | US_ITS ---
PROCEDURE: ULTRASOUND GUIDANCE FOR NEEDLE PLACEMENT CLINICAL INFORMATION: Large right thigh hematoma following injury. COMPARISON: None available. TECHNIQUE: Following explaining ultrasound-guided right thigh hematoma drainage procedure, benefits and risk, a written consent was obtained. Patient was placed supine on ultrasound stretcher and pulmonary ultrasound imaging was obtained. The boundaries of the hematoma or marked. The central part of the hematoma was marked as well. The entire hematoma was cleaned and draped in usual sterile manner with 2% chlorhexidine solution. 1% lidocaine was injected puncture site. Through a small skin incision a 18-gauge needle was inserted from the skin into the hematoma. After observing fluid return, the needles connected to vacuum bottle via connecting cannula. After obtaining all fluid and observing no more fluid collection remaining, the needle was withdrawn and complete hemostasis achieved at puncture site. Simple Band-Aid applied postprocedure. FINDINGS: In the ultrasound imaging there is a large seroma seen along the right lateral thigh with markers placed on the skin. Approximately 450 mm thin fluid was drained from the right thigh hematoma. There were no immediate complications. None of this fluid was sent to lab. US/US drain soft tissue w imaging IMPRESSION: Successful ultrasound-guided drainage of right thigh hematoma/seroma. Electronically signed by: Juancarlos aPt MD 10/17/2024 02:21 PM EDT
--- OUTSIDE RECORDS SUMMARY | 2024-10-16 10:55 | XMS_ITS | Patient Health Record ---
Author Organization [facility] Address [address] [place] [address] Care Team Providers Care Cable Cutter And Swager Name Role Phone Bassem Mahajan MD Primary Care Provider UnavailJude Liao Unavailable [phone] Allergies No Known Allergies Reason For Referral [...] Problem Status W/U Status Risk Notes Problem [id number] Encounter for screening for malignant neoplasm of colon (Z12.11) Active confirmed Problem 243685568 History of adenomatous polyp of colon (Z86.010) Active confirmed Problem Encounter for screening for malignant neoplasm of rectum (Z12.12) Active confirmed Problem 11280531 Preprocedural examination (Z01.818) Active confirmed Problem Diverticulosis of colon (488211246) Diverticulosis of colon (K57.30) Active confirmed Plan Of Treatment Pending Test Test Name Order Date Pathology 06/24/2021 Future Test Test Name Order Date COLONOSCOPY 07/28/2015 COLONOSCOPY 04/26/2021 Insurance Providers Payer Name Payer Address Payer Phone Subscriber Number Group Number Insured Name Patient Relationship to Insured Coverage Start Date Coverage End Date 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 [address] [place] [address] [id number] MOOK SETHI Self - patient is the insured Medical (General) History Medical History History ICD Code Jul, 2010 Screening Colonosc opy-- tubular adenoma, hyperplastic polyp, internal hemorrhoids Hyperlipidemia Diet-controlled DM Arthritis in knees Denies [place],DM,CVA,Lung disease,renal dise ase Benign uterine biopsies Colonoscopy 02/2016 with a hyperplastic polyp Barium swallow 08/2020 with n o esophageal abnormality, but with some spondylosis of the cervical spine with some mild indentation of the posterior cervical esophageal wall, but without any esophageal obstruction Surgical History Surgery Date(Month/Year) Knee surgery Cholecystectomy Tonsillectomy Bilateral carpal tunnel
== END 2024-10-16 10:26 | disposition home or self-care (01) ==
LOC: HO.US 10:25
PROVIDERS: Visit Provider Surgery
DX: S80.11XA Contusion of right lower leg, initial encounter (principal)
CPT/HCPCS: 10030

== ENCOUNTER → 2024-10-16 10:28 | Outpatient (BNV) | payer OTHER, SELFPAY | PROVIDERS: Visit Provider Radiology Diagnostic Radiology | DX: R22.41 Localized swelling, mass and lump, right lower limb (principal) | CPT/HCPCS: 10030 ==

== ENCOUNTER 2024-11-25 14:46 | Outpatient (AMB) | payer OTHER, SELFPAY ==
--- OUTSIDE RECORDS SUMMARY | 2024-08-26 13:36 | XMS_ITS ---
Author Organization [facility] Address [facility] [place], [place] [id number] Care Team Providers Care Ocean Forwarder Name Role Phone CAITIE DE OLIVEIRA Primary Care Provider [phone] REASON FOR VISIT Stress test Encounters Encounter Location Date Provider Diagnosis [facility] [address] [place] [address] 08/26/2024 CAITIE DE OLIVEIRA PLAN OF TREATMENT Next Appt Details Provider Name:CAITIE DE OLIVEIRA , 02/10/2025 02:30:00 PM, [address] [place], [address],
--- OUTSIDE RECORDS SUMMARY | 2024-10-14 09:00 | XMS_ITS ---
Author Organization [facility] Address [facility] [place], [place] [id number] Care Team Providers Care Security Compliance Specialist Name Role Phone CAITIE DE OLIVEIRA Primary Care Provider REASON FOR VISIT 41/ 3mo Encounters Encounter Location Date Provider Diagnosis [facility] [address] [place] [phone] 10/14/2024 CAITIE DE OLIVEIRA PLAN OF TREATMENT Next Appt Details Provider Name:CAITIE DE OLIVEIRA , 02/10/2025 02:30:00 PM, [address] [place], [address],
--- OUTSIDE RECORDS SUMMARY | 2024-11-01 12:15 | XMS_ITS ---
Author Organization [facility] Address [facility] [place], [place] [id number] Care Team Providers Care Oil Lease Broker Name Role Phone CAITIE DE OLIVEIRA Primary Care Provider REASON FOR VISIT labs Encounters Encounter Location Date Provider Diagnosis [facility] [address] [place] [phone] 11/01/2024 CAITIE DE OLIVEIRA PLAN OF TREATMENT Next Appt Details Provider Name:CAITIE DE OLIVEIRA , 02/10/2025 02:30:00 PM, [address] [place], [address],
--- OUTSIDE RECORDS SUMMARY | 2024-11-11 11:00 | XMS_ITS ---
Author Organization [facility] Address [address] [place], [place] [id number] Care Team Providers Care Economic Research Analyst Name Role Phone CAITIE DE OLIVEIRA Primary Care Provider ALLERGIES Allergen (clinical drug ingredient) Drug/Non Drug Allergy documented on EMR Reaction Allergy Type Onset Date Status hyoscyamine Hyoscyamine Sulfate Levbid Drug Allergy 08/26 Active REASON FOR VISIT 3 month f/u, patient states will get flu vacc 02/2025 MEDICATIONS Medication SIG (Take, Route, Frequency, Duration) Notes Start Date End Date Status Meloxicam 15 MG 1 tablet Orally Once a day Active Ozempic (1 MG/DOSE) 4 MG/3ML as directed Subcutaneous every 7 days for 28 days 11/11/2024 Active Multi-Vitamin take 1 tablet by ORA L route every day with food Oral 06/22/2008 Active Fluticasone Propionate 50 MCG/ACT 2 sprays in each nostril Nasally Once a day for 30 day(s) 04/23/2023 Active Vitamin D3 Super Strength 50 MCG (1999 UT) take 1 by Oral route every day Oral 05/22/2012 Active metFORMIN HCl 500 MG 1 tablet with a angeli l Orally twice a day Active Simvastatin 20 MG 1 tablet in the even ing Orally Once a day Active Celecoxib 200 MG 1 capsule as needed Orally Once a day Active SOCIAL HISTORY Tobacco Use: Social History Observation Description Date Details (start date - stop date) Never Smoker NA - NA Sex Assigned At : Social History Observation Description Sex Assigned At Unknown Smoking Question Answer Notes Are you a: never smoker VITAL SIGNS Height 64.50 in 11/11/2024 Weight 239.0 lbs 11/11/2024 Blood pressure systolic 108 mm Hg 11/12/19 25 Blood pressure diastolic 76 mm Hg 025 BMI 40.39 kg/m2 11/11/2024 Encounters Encounter Location Date Provider Diagnosis [facility] [address] [place] [address] 11/11/2024 CAITIE DE OLIVEIRA Type 2 diabetes mellitus with hyperglycemia, without long-term current use of insulin E11.65 ; Mixed hyperlipidemia E78.2 ; Primary osteoarthritis of right knee M17.11 and Hematoma of right lower extremity, initial encounter S80.11XA ASSESSMENTS Encounter Date Diagnosis Assessment Notes Treatment Notes Treatment Clinical Notes Section Notes 11/11/2024 Type 2 diabetes mellitus with hyperglycemia, without long-term current use of insulin (ICD-10 - E11.65) 1. Diabetes: A1c markedly better - down from 7.8 to 6.1. Will increase Ozempic to 1 mg at time of next fill. 2. Hyperlipidemia: Stable on simvastatin Continue 3. Right knee osteoarthritis -debating further surgery - await f/u Dr Zambrano 4. Hematoma Right leg : stable post evacuation - follow 11/11/2024 Mixed hyperlipidemia (ICD-10 - E78.2) 1. Diabetes: A1c markedly better - down from 7.8 to 6.1. Will increase Ozempic to 1 mg at time of next fill. 2. Hyperlipidemia: Stable on simvastatin Continue 3. Right knee osteoarthritis -debating further surgery - await f/u Dr Zambrano 4. Hematoma Right leg : stable post evacuation - follow 11/11/2024 Primary osteoarthritis of right knee (ICD-10 - M17.11) 1. Diabetes: A1c markedly better - down from 7.8 to 6.1. Will increase Ozempic to 1 mg at time of next fill. 2. Hyperlipidemia: Stable on simvastatin Continue 3. Right knee osteoarthritis -debating further surgery - await f/u Dr Zambrano 4. Hematoma Right leg : stable post evacuation - follow 11/11/2024 Hematoma of right lower extremity, initial encounter (ICD-10 - S80.11XA) 1. Diabetes: A1c markedly better - down from 7.8 to 6.1. Will increase Ozempic to 1 mg at time of next fill. 2. Hyperlipidemia: Stable on simvastatin Continue 3. Right knee osteoarthritis -debating further surgery - await f/u Dr Zambrano 4. Hematoma Right leg : stable post evacuation - follow PLAN OF TREATMENT Medication Medication Name Sig Start Date Stop Date Notes Ozempic (1 MG/DOSE) 4 MG/3ML as directed Subcutaneous every 7 days for 28 days 11/11/2024 Ozempic (0.25 or 0.5 MG/DOSE ) 2 MG/3ML 0.25 MG X 2 WEEKS THEN 0.5 MG SUBCUTANEOUS EVERY 7 DAYS 28 DAYS metFORMIN HCl 500 MG 1 tablet with a angeli l Orally twice a day Simvastatin 20 MG 1 tablet in the even ing Orally Once a day Celecoxib 200 MG 1 capsule as needed Orally Once a day Next Appt Details Provider Name:CAITIE DE OLIVEIRA , 02/10/2025 02:30:00 PM, [address] [place] [address], [phone], Progress Notes * Examination Category Sub-Category Detail Notes Category Not es General Examination Heart: RSR, normal S1S2 Lungs: clear to auscultatio n Extremities: no edema General Appearance no apparent distress , pleasant Psych: alert, oriented X 3 Other normal affect History and Physical Notes * HPI (History of Present Illness) Category Sub-Category Detail Notes Category Not es General Patient feel in August - had forehead laceration - 6 stitches. Also had hematoma right thigh - drained at [place] when came home. Pain imroved - still with some numbness. She is tolerating Ozempic well at present 0.5 strength. No GI side effects No chest pain, palpitations or SOB.
--- OUTSIDE RECORDS SUMMARY | 2024-11-24 15:04 | XMS_ITS ---
Author Organization [facility] Address [address] [place], [place] [address] Care Team Providers Care Striper Name Role Phone CAITIE DE OLIVEIRA Primary Care Provider REASON FOR VISIT New Refill Request MEDICATIONS Medication SIG (Take, Route, Frequency, Duration) Notes Start Date End Date Status Ozempic (1 MG/DOSE) 4 MG/3ML as directed Subcutaneous every 7 days for 28 days 11/11/2024 Active Encounters Encounter Location Date Provider Diagnosis [facility] [address] [place] [phone] 11/24/2024 CAITIE DE OLIVEIRA Type 2 diabetes mellitus with hyperglycemia, without long-term current use of insulin E11.65 ASSESSMENTS Encounter Date Diagnosis Assessment Notes Treatment Notes Treatment Clinical Notes Section Notes 11/24/2024 Type 2 diabetes mellitus with hyperglycemia, without long-term current use of insulin (ICD-10 - E11.65) PLAN OF TREATMENT Medication Medication Name Sig Start Date Stop Date Notes Ozempic (1 MG/DOSE) 4 MG/3ML as directed Subcutaneous every 7 days for 28 days 11/11/2024 Next Appt Details Provider Name:CAITIE DE OLIVEIRA , 02/10/2025 02:30:00 PM, [address] [place], [phone],
--- NOTE | 2024-11-25 15:08 | A.OFFVIS_ITS ---
Intake Visit Reasons: OV- Right knee INJ, last INJ 08/21/24 Intake Note: Deisi is a 64 year old female who presents today for an injection in her right knee, last injection 08/21/24. At today's visit she states that the last injection did give relief. The patient states that she aggravated her right knee in August when she fell while on vacation. She has tried Tylenol, meloxicam and Celebrex which gave her only mild relief. She wishes to hold off on total knee replacement surgery for now. Allergies No Known Allergies (No Known Allergies*) Allergy (Verified 10/09/24 13:55) Medication List - Last Reconciled 11/26/24 by Vernon Zambrano MD biotin 1,000 mcg PO DAILY celecoxib (Celebrex) 200 mg PO DAILY PRN cholecalciferol (vitamin D3) 25 mcg PO DAILY meloxicam 15 mg PO DAILY PRN metformin 1 tab PO QPM mdlfkcqk-lzhrfep-zxvv-lutein 1 tab PO DAILY semaglutide (Ozempic) mg subcut simvastatin 1 tab PO QPM PFSH Medical History Arthritis Elevated cholesterol Diabetes Surgical History S/P excision of lipoma (07/03/22) History of carpal tunnel release of both wrists Hx of tonsillectomy Hx of knee surgery Hx of cholecystectomy H/O colonoscopy Social History Are you a primary insurance healthcare representative to a significant other at home: No Do you presently have visiting nurse or other home services: No Alcohol intake: current Alcohol intake frequency: holidays/special occasions only Patient Tobacco Use Status: Never used Tobacco Physical Exam Const Other: Well-nourished well-developed very friendly female awake alert and oriented x3 in no acute distress Extrem Other: Right knee examination shows a minimal effusion, palpable crepitus with range of motion, pain with range of motion, no instability Office Procedures AMB Joint Injection/Aspiration Joint Injection/Aspiration Primary Site: right knee Prep: site was prepped using aseptic technique Injected: 40 mg of, DepoMedrol and 1% plain lidocaine Procedure: The patient tolerated the procedure well Coding 18854 - Large joint Procedure code (CPT) selection complete Results Reviewed Results Reviewed: X-rays of the patient's right knee taken previously show joint space narrowing, subchondral sclerosis, no acute bony abnormalities Assessment & Plan Assessment & Plan (1) Osteoarthritis of right knee: Code(s): M17.11 - Unilateral primary osteoarthritis, right knee Category: Medical Plan Ms. Frazier presents with right knee pain due to degenerative joint disease. The risks and benefits of a right knee cortisone injection were discussed at length with the patient. The patient wished to proceed. She tolerated the injection well. She will continue with her home exercise program. She will contact me prior to her follow-up appointment in 3 months should any questions or concerns arise. Feel free to call me at any time should questions regarding her orthopedic management arise. I spent 20 minutes in reviewing the patient's records and imaging studies, seeing the patient and documenting in the medical record. Orders: Orders AMB Joint Injection/Aspiration 11/25/24 M17.11 - Unilateral primary ost eoarthritis, right knee Coding Level of Care Code Est Pt Level 3 (86030) Complex EM visit Add On G2211 Diagnoses Osteoarthritis of right knee M17.11 CPT Codes Coding - 81667 Large joint: 45014 - Large joint ([id number])
--- OUTSIDE RECORDS SUMMARY | 2024-11-25 18:28 | XMS_ITS | Patient Health Record ---
Author Organization [facility] Address [address], [place] [address] Care Team Providers Care Equal Opportunity Director Name Role Phone CAITIE DE OLIVEIRA Primary Care Provider [phone] ALLERGIES Allergen (clinical drug ingredient) Drug/Non Drug Allergy documented on EMR Reaction Allergy Type Onset Date Status hyoscyamine Hyoscyamine Sulfate Levbid Drug Allergy 08/26 Active REASON FOR REFERRAL No Information MEDICATIONS Medication SIG (Take, Route, Frequency, Duration) Notes Start Date End Date Status Meloxicam 15 MG 1 tablet Orally Once a day Active metFORMIN HCl 500 MG 1 tablet with a angeli l Orally twice a day Active Multi-Vitamin take 1 tablet by ORA L route every day with food Oral 06/22/2008 Active Simvastatin 20 MG 1 tablet in the even ing Orally Once a day Active Celecoxib 200 MG 1 capsule as needed Orally Once a day Active Ozempic (1 MG/DOSE) 4 MG/3ML as directed Subcutaneous every 7 days for 28 days 11/11/2024 Active Fluticasone Propionate 50 MCG/ACT 2 sprays in each nostril Nasally Once a day for 30 day(s) 04/23/2023 Active Vitamin D3 Super Strength 50 MCG (1999 UT) take 1 by Oral route every day Oral 05/22/2012 Active IMMUNIZATIONS Vaccine Route Administration Date Status Comme nts Covid Unknown 12/29/2021 Administered Influenza, Flublok IM Intramuscular 12/19/2022 Administere d Influenza, Flublok IM Intramuscular 01/22/2024 Administere d Pfizer COVID-19,mRNA, LNP-S, PF, 30mcg/0.3mL dose Unknown 02/27/2020 Administered SARSCOV2 VAC 3 MCG TRS-SUCR Pfizer Unknown 08/01/2021 Administered SARSCOV2 VAC 30 MCG TRS-SUCR Pfizer Unknown 03/19/2019 Administered SARSCOV2 VAC BVL 3MCG/0.2ML Pfizer Unknown 12/09/2019 Administered Td (Tetanus Diphtheria) Unknown 01/18/2009 Administered SOCIAL HISTORY Tobacco Use: Social History Observation Description Date Details (start date - stop date) Never Smoker NA - NA Sex Assigned At : Social History Observation Description Sex Assigned At Unknown Smoking Question Answer Notes Are you a: never smoker PROBLEMS Problem Type ICD Code Onset Dates Problem Status W/U Status Risk SNOMED Code Notes Problem Vitamin D deficiency (E55.9) Active confirmed 14686258 Problem Morbid (severe) obesity due to excess calories (E66.01) Active confirmed 97086742427623 Problem Primary osteoarthritis of both knees (M17.0) Active confirmed 265181226 Problem Primary osteoarthritis of right knee (M17.11) Active confirmed 519213977359667 Problem Acute non-recurrent frontal sinusitis (J01.10) Active confirmed 21586191 Problem Type 2 diabetes mellitus with hyperglycemia, without long-term current use of insulin (E11.65) Active confirmed Hyperglycem ia due to type 2 diabetes mellitus (805986582568386) Problem Type 2 diabetes mellitus without complication, without long-term current use of insulin (E11.9) Active confirmed Type II diab etes mellitus without complication (691047337) Problem Body mass index [BMI] 40.0-44.9, adult (Z68.41) Active confirmed 991737378 Problem Type 2 diabetes mellitus without complications (E11.9) 07/20/19 10 Active confirmed Type II diabetes mellitus without complication (518808882) Problem Mixed hyperlipidemia (E78.2) 07/20/19 10 Active confirmed Mixed hyperlipidemia (747793720) VITAL SIGNS Blood pressure diastolic 76 mm Hg 11/11/2024 Height 64.50 in 11/11/2024 Blood pressure systolic 108 mm Hg 11/11/2024 Weight 239.0 lbs 11/11/2024 BMI 40.39 kg/m2 11/11/2024 Encounters Encounter Location Date Provider Diagnosis [facility] [address] [place] [address] 01/22/2024 CAITIE DE OLIVEIRA Type 2 diabetes mellitus without complications E11.9 ; Mixed hyperlipidemia E78.2 ; Tear of medial meniscus of right knee, unspecified tear type, unspecified whether old or current tear, subsequent encounter S83.241D and Encounter for immunization Z23 [place] [id number] 04/22/2024 [facility] Type 2 diabetes mellitus without complication, without long-term current use of insulin E11.9 ; Palpitations R00.2 ; Elevated blood pressure reading R03.0 and Primary osteoarthritis of right knee M17.11 [place] [id number] 04/30/2024 [facility] Ventricular tachycar dmitri I47.[address] [address] 06/04/2024 [place] [id number] 06/25/2024 [facility] Type 2 diabetes mellitus without complication, without long-term current use of insulin E11.9 [place] [id number] 07/22/2024 [facility] Type 2 diabetes mellitus with hyperglycemia, without long-term current use of insulin E11.65 ; Morbid (severe) obesity due to excess calories E66.01 and Mixed hyperlipidemia E78.2 [place] [id number] 08/26/2024 [place] [id number] 10/14/2024 [place] [id number] 11/01/2024 [place] [id number] 11/11/2024 [facility] Type 2 diabetes mellitus with hyperglycemia, without long-term current use of insulin E11.65 ; Mixed hyperlipidemia E78.2 ; Primary osteoarthritis of right knee M17.11 and Hematoma of right lower extremity, initial encounter S80.11XA [address] [address] 11/24/2024 [facility] Type 2 diabetes mellitus with hyperglycemia, without long-term current use of insulin E11.65 ASSESSMENTS Encounter Date Diagnosis Assessment Notes Treatment Notes Treatment Clinical Notes Section Notes 01/22/2024 Type 2 diabetes mellitus without complications (ICD-10 - E11.9) 1. Diabetes: We will update A1c with diet control. 2. Hyperlipidemia: Full panel not done on last labs. Reordered today 3. Medial meniscal tear right knee: S/p arthroscopic repair. Follow-up with orthopedics 4. Flu shot given today 01/22/2024 Mixed hyperlipidemia (ICD-10 - E78.2) 1. Diabetes: We will update A1c with diet control. 2. Hyperlipidemia: Full panel not done on last labs. Reordered today 3. Medial meniscal tear right knee: S/p arthroscopic repair. Follow-up with orthopedics 4. Flu shot given today 04/22/2024 Palpitations (ICD-10 - R00.2) 1. Diabetes: We will update A1c on metformin. He is concerned because she has been less active with her knee issues. She is trying to be cautious diet 2. Palpitations: More frequent in recent weeks. Will order 48-hour Holter 3. Elevated blood pressure: First-time elevation today. Will recheck at follow-up and if similar would consider medication 4. Primary osteoarthritis right knee: Not better after arthroscopic procedure. Meloxicam not helping. Await recommendations from orthopedics later today 04/22/2024 Type 2 diabetes mellitus without complication, without long-term current use of insulin (ICD-10 - E11.9) 1. Diabetes: We will update A1c on metformin. He is concerned because she has been less active with her knee issues. She is trying to be cautious diet 2. Palpitations: More frequent in recent weeks. Will order 48-hour Holter 3. Elevated blood pressure: First-time elevation today. Will recheck at follow-up and if similar would consider medication 4. Primary osteoarthritis right knee: Not better after arthroscopic procedure. Meloxicam not helping. Await recommendations from orthopedics later today 04/30/2024 Ventricular tachycardia (ICD-10 - I47.20) 06/25/2024 Type 2 diabetes mellitus without complication, without long-term current use of insulin (ICD-10 - E11.9) 07/22/2024 Morbid (severe) obesity due to excess calories (ICD-10 - E66.01) 1. Type 2 diabetes mellitus: A1c is up to 7.8. We will add Mounjaro to metformin and plan to recheck A1c in September 10. Obesity: Will add GLP-1 agonist as above. Reviewed possible side effects including nausea, heartburn diarrhea and constipation. She will call with any concerns prior to her next appointment 3. Hyperlipidemia: Mildly elevated on simvastatin. Will work at diet and plan to recheck in 6 months 07/22/2024 Type 2 diabetes mellitus with hyperglycemia, without long-term current use of insulin (ICD-10 - E11.65) 1. Type 2 diabetes mellitus: A1c is up to 7.8. We will add Mounjaro to metformin and plan to recheck A1c in September 2. Obesity: Will add GLP-1 agonist as above. Reviewed possible side effects including nausea, heartburn diarrhea and constipation. She will call with any concerns prior to her next appointment 3. Hyperlipidemia: Mildly elevated on simvastatin. Will work at diet and plan to recheck in 6 months 11/11/2024 Mixed hyperlipidemia (ICD-10 - E78.2) 1. Diabetes: A1c markedly better - down from 7.8 to 6.1. Will increase Ozempic to 1 mg at time of next fill. 2. Hyperlipidemia: Stable on simvastatin Continue 3. Right knee osteoarthritis -debating further surgery - await f/u Dr Zambrano 4. Hematoma Right leg : stable post evacuation - follow 11/11/2024 Type 2 diabetes mellitus with hyperglycemia, [...] leg : stable post evacuation - follow 11/24/2024 Type 2 diabetes mellitus with hyperglycemia, without long-term current use of insulin (ICD-10 - E11.65) 01/22/2024 Tear of medial meniscus of right knee, unspecified tear type, unspecified whether old or current tear, subsequent encounter (ICD-10 - S83.241D) 1. Diabetes: We will update A1c with diet control. 2. Hyperlipidemia: Full panel not done on last labs. Reordered today 3. Medial meniscal tear right knee: S/p arthroscopic repair. Follow-up with orthopedics 4. Flu shot given today 04/22/2024 Elevated blood pressure reading (ICD-10 - R03.0) 1. Diabetes: We will update A1c on metformin. He is concerned because she has been less active with her knee issues. She is trying to be cautious diet 2. Palpitations: More frequent in recent weeks. Will order 48-hour Holter 3. Elevated blood pressure: First-time elevation today. Will recheck at follow-up and if similar would consider medication 4. Primary osteoarthritis right knee: Not better after arthroscopic procedure. Meloxicam not helping. Await recommendations from orthopedics later today 07/22/2024 Mixed hyperlipidemia (ICD-10 - E78.2) 1. Type 2 diabetes mellitus: A1c is up to 7.8. We will add Mounjaro to metformin and plan to recheck A1c in September 10. Obesity: Will add GLP-1 agonist as above. Reviewed possible side effects including nausea, heartburn diarrhea and constipation. She will call with any concerns prior to her next appointment 3. Hyperlipidemia: Mildly elevated on simvastatin. Will work at diet and plan to recheck in 6 months 11/11/2024 Primary osteoarthritis of right knee (ICD-10 - M17.11) 1. Diabetes: A1c markedly better - down from 7.8 to 6.1. Will increase Ozempic to 1 mg at time of next fill. 2. Hyperlipidemia: Stable on simvastatin Continue 3. Right knee osteoarthritis -debating further surgery - await f/u Dr Zambrano 4. Hematoma Right leg : stable post evacuation - follow 01/22/2024 Encounter for immunization (ICD-10 - Z23) VIS sheet provided to patient influenza vaccine administered patient counseled 1. Diabetes: We will update A1c with diet control. 2. Hyperlipidemia: Full panel not done on last labs. Reordered today 3. Medial meniscal tear right knee: S/p arthroscopic repair. Follow-up with orthopedics 4. Flu shot given today 04/22/2024 Primary osteoarthritis of right knee (ICD-10 - M17.11) 1. Diabetes: We will update A1c on metformin. He is concerned because she has been less active with her knee issues. She is trying to be cautious diet 2. Palpitations: More frequent in recent weeks. Will order 48-hour Holter 3. Elevated blood pressure: First-time elevation today. Will recheck at follow-up and if similar would consider medication 4. Primary osteoarthritis right knee: Not better after arthroscopic procedure. Meloxicam not helping. Await recommendations from orthopedics later today 11/11/2024 Hematoma of right lower extremity, initial [...] post evacuation - follow PLAN OF TREATMENT Future Test Test Name Order Date Hemoglobin [id number] 04/22/2024 Next Appt Details Provider Name:CAITIE DE OLIVEIRA , 02/10/2025 02:30:00 PM, [address] [place], [address], Insurance Providers Payer Name Payer Address Payer Phone Subscriber Number Group Number Insured Name Patient Relationship to Insured Coverage Start Date Coverage End Date [employer] [address] [address] [place] [address] [id number] MOOK SETHI Self - patient is the insured 0 MEDICAL (GENERAL) HISTORY Medical History History ICD Code :cardiovascular, Disease : Elevated lipi ds, :metabolic/endocrine, Disease : Diabetes , :musculoskeletal, Disease : Left Frozen Shoulder, Procedure Year : 1999 :musculoskeletal, Disease : plantar Fasc iitis, Surgical History Surgery Date(Month/Year) Arthroscopic surgery Right knee - menisc al tear/arthritis nov 2023 Lumbar Degenerative disc disease, Sx_Pro cedure : LOIS 2008 Cholecystitis, Sx_Procedure : Cholecyste ctomy 2003 Hospitalization History Reason Date(Month/Year) [place] fall- hematoma RIght leg- tom oconnor 09/07/24
--- OUTSIDE RECORDS SUMMARY | 2024-11-25 18:29 | XMS_ITS | Patient Health Record ---
Author Organization [facility] Address [address] [place] [address] Care Team Providers Care [employer] Name Role Phone Bassem Mahajan MD Primary Care Provider UnavailJude Liao Unavailable [phone] Allergies No Known Allergies Reason For Referral [...] Problem Status W/U Status Risk Notes Problem [id number] Encounter for screening for malignant neoplasm of colon (Z12.11) Active confirmed Problem 060261414 History of adenomatous polyp of colon (Z86.010) Active confirmed Problem Screening for malignant neoplasm of rectum (448457137) Encounter for screening for malignant neoplasm of rectum (Z12.12) Active confirmed Problem 51494049 Preprocedural examination (Z01.818) Active confirmed Problem Diverticulosis of colon (694962386) Diverticulosis of colon (K57.30) Active confirmed Plan Of Treatment Pending Test Test Name Order Date Pathology 06/24/2021 Future Test Test Name Order Date COLONOSCOPY 07/28/2015 COLONOSCOPY 04/26/2021 Insurance Providers Payer Name Payer Address Payer Phone Subscriber Number Group Number Insured Name Patient Relationship to Insured Coverage Start Date Coverage End Date [employer] [address] [address] [place] [address] [id number] MOOK SETHI Self - patient is the insured Medical (General) History Medical History History ICD Code Jul, 2010 Screening Colonosc opy-- tubular adenoma, hyperplastic polyp, internal hemorrhoids Hyperlipidemia Diet-controlled DM Arthritis in knees Denies [place],DM,CVA,Lung disease,renal dise ase Benign uterine biopsies Colonoscopy 02/2016 with a hyperplastic polyp Barium swallow 08/2020 with n o esophageal abnormality, but with some spondylosis of the cervical spine with some mild indentation of the posterior cervical esophageal wall, but without any esophageal obstruction Surgical History Surgery Date(Month/Year) Knee surgery Cholecystectomy Tonsillectomy Bilateral carpal tunnel
== END 2024-11-25 15:35 | disposition home or self-care (01) ==
LOC: HO.HOS 14:47
PROVIDERS: PCP Internal Medicine; Visit Provider Orthopaedic Surgery
DX: M17.11 Unilateral primary osteoarthritis, right knee (principal)
CPT/HCPCS: 20610; 99213

== ENCOUNTER → 2024-11-25 14:46 | Outpatient (BNVA) | payer OTHER, SELFPAY | PROVIDERS: PCP Internal Medicine; Visit Provider Orthopaedic Surgery | DX: M17.11 Unilateral primary osteoarthritis, right knee (principal) | CPT/HCPCS: 20610; J1010; J2003 ==

== ENCOUNTER 2025-02-25 14:26 | Outpatient (AMB) | payer OTHER, SELFPAY ==
--- OUTSIDE RECORDS SUMMARY | 2023-09-24 08:15 | XMS_ITS ---
Author Organization [facility] Address [address] [place] [address] Care Team Providers Care Special Events Manager Name Role Phone CAITIE DE OLIVEIRA Primary Care Provider REASON FOR VISIT 41 CPX Encounters Encounter Location Date Provider Diagnosis [address] [id number] 09/24/2023 CAITIE DE OLIVEIRA Plan Of Treatment Next Appt Details Provider Name:CAITIE DE OLIVEIRA , 03/06/2025 01:00:00 PM, [address] [place], [address], Progress Notes * MOOK SETHI MDOB:1960 (64 yo F)Acc No.[id number]:09/24/2023 Progress Notes Patient: MOOK CHUNG Provider: Fina DE OLIVEIRA M.D. :1960 A ge:63 Y S ex:Female Date:09/24/2023 Address:[address] [place] [address], [place], [place]-[id number] Subjective: * Chief Complaints: * 4 1 CPX * Electronic signature of CAITIE DE OLIVEIRA MD on 02/25/2025 at 07:18 PM EST Sign off status: Pending * Provider: Fina DE OLIVEIRA M.D. Date: 0 09/24/2023 Generated for Printi ng/Faxing/eTransmitting on: 1 04/28/2024 07:18 PM EST
--- OUTSIDE RECORDS SUMMARY | 2024-10-14 08:00 | XMS_ITS ---
Author Organization [facility] Address [address] [place] [address] Care Team Providers Care Hand Rug Cleaner Name Role Phone CAITIE DE OLIVEIRA Primary Care Provider [phone] REASON FOR VISIT 41/ 3mo Encounters Encounter Location Date Provider Diagnosis [place] [phone] 10/14/2024 CAITIE DE OLIVEIRA Plan Of Treatment Next Appt Details Provider Name:CAITIE DE OLIVEIRA , 03/06/2025 01:00:00 PM, [address] [place], [address], Progress Notes * MOOK SETHI MDOB:1960 (64 yo F)Acc No.[id number]:10/14/2024 Progress Notes Patient: MOOK CHUNG Provider: Fina DE OLIVEIRA M.D. :1960 A ge:64 Y S ex:Female Date:10/14/2024 Address:[address] [place] [address], [facility] [place], [id number] Subjective: * Chief Complaints: * 4 1/ 3mo * Electronic signature of CAITIE DE OLIVEIRA MD on 02/25/2025 at 07:19 PM EST Sign off status: Pending * Provider: Fina DE OLIVEIRA M.D. Date: 0 10/14/2024 Generated for Printi ng/Faxing/eTransmitting on: 1 04/28/2024 07:19 PM EST
--- OUTSIDE RECORDS SUMMARY | 2025-02-10 09:30 | XMS_ITS ---
Author Organization [facility] Address [address] [place] [address] Care Team Providers Care Ed Transporter Name Role Phone CAITIE DE OLIVEIRA Primary Care Provider REASON FOR VISIT 41 3 mo f/u Encounters Encounter Location Date Provider Diagnosis [address] [address] 02/10/2025 CAITIE DE OLIVEIRA Plan Of Treatment Next Appt Details Provider Name:CAITIE DE OLIVEIRA , 03/06/2025 01:00:00 PM, [address] [place], [address], Progress Notes * MOOK SETHI MDOB:1960 (64 yo F)Acc No.[id number]:02/10/2025 Progress Notes Patient: MOOK CHUNG Provider: Fina DE OLIVEIRA M.D. :1960 A ge:64 Y S ex:Female Date:02/10/2025 Address:[address] [place] [id number] Subjective: * Chief Complaints: * 4 1 3 mo f/u Billing Information: * Procedure Codes: * Electronic signature of CAITIE DE OLIVEIRA MD on 02/25/2025 at 07:18 PM EST Sign off status: Pending * Provider: Fina DE OLIVEIRA M.D. Date: 04/13/2024 Generated for Jodi herman/Reza/eTransmitting on: 04/28/2024 07:18 PM EST
--- NOTE | 2025-02-25 14:45 | A.OFFVIS_ITS ---
Intake Visit Reasons: Right knee pain Intake Note: Deisi is a 64 year old female who presents with complaints of right knee pain. She describes her pain as sharp in nature. She has tried Tylenol and meloxicam which gave her mild relief. She has also had cortisone injections which gave her temporary relief. She is considering undergoing right total knee replacement surgery later next year. She would like to return to physical therapy to strengthen her knee prior to total knee replacement surgery. Allergies No Known Allergies (No Known Allergies*) Allergy (Verified 02/25/25 14:46) Medication List - Last Reconciled 02/25/25 by Vernon Zambrano MD biotin 1,000 mcg PO DAILY celecoxib (Celebrex) 200 mg PO DAILY PRN cholecalciferol (vitamin D3) 25 mcg PO DAILY meloxicam 15 mg PO DAILY PRN metformin 1 tab PO QPM peiiaxir-rtwyeyr-wbyh-lutein 1 tab PO DAILY semaglutide (Ozempic) mg subcut simvastatin 1 tab PO QPM PFSH Medical History Arthritis Elevated cholesterol Diabetes Surgical History S/P excision of lipoma (07/03/22) History of carpal tunnel release of both wrists Hx of tonsillectomy Hx of knee surgery Hx of cholecystectomy H/O colonoscopy Social History Are you a primary life care planner to a significant other at home: No Do you presently have visiting nurse or other home services: No Alcohol intake: current Alcohol intake frequency: holidays/special occasions only Patient Tobacco Use Status: Never used Tobacco Physical Exam Extrem Other: Right knee examination shows a minimal effusion, palpable crepitus with range of motion, pain with range of motion, no instability Office Procedures AMB Joint Injection/Aspiration Joint Injection/Aspiration Primary Site: Right Knee Prep: site was prepped using aseptic technique Injected: 40 mg of, DepoMedrol, with 3 mL of and 1% plain Lidocaine Procedure: The patient tolerated the procedure well Coding 29038 - Large joint Procedure code (CPT) selection complete Assessment & Plan Assessment & Plan (1) Osteoarthritis of right knee: Code(s): M17.11 - Unilateral primary osteoarthritis, right knee Category: Medical (2) Right knee pain: Code(s): M25.561 - Pain in right knee Category: Medical Plan Deisi presents with right knee pain due to osteoarthritis. The risks and benefits of a right knee cortisone injection were discussed at length with the patient. The patient wished to proceed. She tolerated the injection well. I also gave the patient a prescription to go back to formal physical therapy to work on strengthening and range of motion. She will contact me prior to her follow-up appointment in 3 months should any questions or concerns arise. Feel free to call me at any time should questions regarding her orthopedic management arise. I spent 20 minutes in reviewing the patient's records and imaging studies, seeing the patient and documenting in the medical record. Orders: Orders AMB Joint Injection/Aspiration 02/25/25 M17.11 - Unilateral primary osteoarthritis, right knee PT Evaluation and Treatment 02/25/25 M17.11 - Unilateral primary osteoarthritis, right knee Coding Level of Care Code Est Pt Level 3 (35360) Add On Problem Visit Only Diagnoses Osteoarthritis of right knee M17.11 Right knee pain M25.561 CPT Codes Coding - 51282 Large joint: 07500 - Large joint ([id number])
--- OUTSIDE RECORDS SUMMARY | 2025-02-25 19:19 | XMS_ITS | Patient Health Record ---
Author Organization [facility] Address [address] [place] [address] Care Team Providers Care Filtering Machine Tender Name Role Phone CAITIE DE OLIVEIRA Primary Care Provider Allergies Allergen (clinical drug ingredient) Drug/Non Drug Allergy documented on EMR Reaction Allergy Type Onset Date Status hyoscyamine Hyoscyamine Sulfate Levbid Drug Allergy 08/26 Active Reason For Referral No Information Medications Medication SIG (Take, Route, Frequency, Duration) Notes Start Date End Date Status Meloxicam 15 MG Tablet 1 tablet Orally Once a day Active metFORMIN HCl 500 MG Tablet 1 tablet with a meal Orally twice a day Active Multi-Vitamin Tablet take 1 tablet by OR AL route every day with food Oral 06/22/2008 Active Simvastatin 20 MG Tablet 1 tablet in the evening Orally Once a day Active Celecoxib 200 MG Capsule 1 capsule as ne eded Orally Once a day Active Ozempic (1 MG/DOSE) 4 MG/3ML Solution Pen-injector as directed Subcutaneous every 7 days; Duration: 28 days 11/11/2024 Active Fluticasone Propionate 50 MCG/ACT Suspension 2 sprays in each nostril Nasally Once a day; Duration: 30 day(s) 04/23/2023 Active Vitamin D3 Super Strength 50 MCG (1999 [place]) Capsule take 1 by Oral route every day Oral 05/22/2012 Active Immunizations Vaccine Route Administration Date Status [...] Administered Td (Tetanus Diphtheria) Unknown 01/18/2009 Administered Social History Tobacco Use: Social History Observation Description Date Details (start date - stop date) Never Smoker NA - NA Social History Tobacco Use: Social Info Question Answer Notes Smoking Are you a: never smoker Additional Details Category Social Info Options Details 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 alcohol use: yes Wine: occ drug use: no Hobbies/Exercise habits: none Coffee/Tea/Soda: yes Marital Status experience no Pets none smokers in household no Problems Problem Type SNOMED Code ICD Code Onset Dates Problem Status W/U Status Risk Notes Problem Vitamin D deficiency (18217186) Vitamin D deficiency (E55.9) Active confirmed Problem Morbid obesity (disorder) (987963684) Morbid (severe) obesity due to excess calories (E66.01) Active confirmed Problem Osteoarthritis of knee (809378745) Primary osteoarthritis of both knees (M17.0) Active confirmed Problem Osteoarthritis of knee (632644535) Primary osteoarthritis of right knee (M17.11) Active confirmed Problem Acute frontal sinusitis (47825856) Acute non-recurrent frontal sinusitis (J01.10) Active confirmed Problem Hyperglycemia due to type 2 diabetes mellitus (760041293596573) Type 2 diabetes mellitus with hyperglycemia, without long-term current use of insulin (E11.65) Active confirmed Problem Type II diabetes mellitus without complication (274388549) Type 2 diabetes mellitus without complication, without long-term current use of insulin (E11.9) Active confirmed Problem Body mass index 40+ - severely obese (547760366) Body mass index [BMI] 40.0-44.9, adult (Z68.41) Active confirmed Problem Type II diabetes mellitus without complication (982052609) Type 2 diabetes mellitus without complications (E11.9) 07/20/19 10 Active confirmed Problem Mixed hyperlipidemia (541865588) Mixed hyperlipidemia (E78.2) 07/20/19 10 Active confirmed Vital Signs Blood pressure diastolic 76 mm Hg 11/11/2024 Height 64.50 in 11/11/2024 Blood pressure systolic 108 mm Hg 11/11/2024 Weight 239.0 lbs 11/11/2024 BMI 40.39 kg/m2 11/11/2024 Encounters Encounter Location Date Provider Diagnosis [address] [address] 04/22/2024 [facility] Type 2 diabetes mellitus without complication, without long-term current use of insulin E11.9 ; Palpitations R00.2 ; Elevated blood pressure reading R03.0 and Primary osteoarthritis of right knee M17.[address] [address] 07/22/2024 [facility] Type 2 diabetes mellitus with hyperglycemia, without long-term current use of insulin E11.65 ; Morbid (severe) obesity due to excess calories E66.01 and Mixed hyperlipidemia E78.[address] [address] 11/11/2024 [facility] Type 2 diabetes mellitus with hyperglycemia, without long-term current use of insulin E11.65 ; Mixed hyperlipidemia E78.2 ; Primary osteoarthritis of right knee M17.11 and Hematoma of right lower extremity, initial encounter S80.11XA [address] [address] 04/30/2024 [facility] Ventricular tachycar dmitri I47.[address] [address] 06/04/[address] [address] 06/25/2024 [facility] Type 2 diabetes mellitus without complication, without long-term current use of insulin E11.[address] [address] 08/26/[address] [address] 11/01/[address] [address] 02/09/[address] [address] 02/10/[address] [address] 11/24/2024 CAITIE DE OLIVEIRA Type 2 diabetes mellitus with hyperglycemia, without long-term current use of insulin E11.65 [facility] [address] [place] [address] 01/27/2025 CAITIE DE OLIVEIRA Type 2 diabetes mellitus without complication, without long-term current use of insulin E11.9 Assessments Encounter Date Diagnosis (ICD Code) Assessment Notes Treatment Notes Treatment Clinical Notes Section Notes 06/25/2024 Type 2 diabetes mellitus without complication, without long-term current use of insulin (ICD-10 - E11.9) 04/30/2024 Ventricular tachycardia (ICD-10 - I47.20) 07/22/2024 Morbid (severe) obesity due to excess [...] and plan to recheck in 6 months 11/24/2024 Type 2 diabetes mellitus with hyperglycemia, without long-term current use of insulin (ICD-10 - E11.65) 01/27/2025 Type 2 diabetes mellitus without complication, without long-term current use of insulin (ICD-10 - E11.9) 04/22/2024 Palpitations (ICD-10 - R00.2) 1. Diabetes: [...] Await recommendations from orthopedics later today 07/22/2024 Type 2 diabetes mellitus with hyperglycemia, [...] leg : stable post evacuation - follow 04/22/2024 Type 2 diabetes mellitus without complication, [...] Await recommendations from orthopedics later today 04/22/2024 Elevated blood pressure reading (ICD-10 [...] Await recommendations from orthopedics later today 11/11/2024 Primary osteoarthritis of right knee (ICD-10 - M17.11) 1. Diabetes: A1c markedly better - down from 7.8 to 6.1. Will increase Ozempic to 1 mg at time of next fill. 2. Hyperlipidemia: Stable on simvastatin Continue 3. Right knee osteoarthritis -debating further surgery - await f/u Dr Zambrano 4. Hematoma Right leg : stable post evacuation - follow 07/22/2024 Mixed hyperlipidemia (ICD-10 - E78.2) 1. [...] Mildly elevated on simvastatin. Will work at [employer] and plan to recheck in 6 months 04/22/2024 Primary osteoarthritis of right knee (ICD-10 [...] leg : stable post evacuation - follow Plan Of Treatment Future Test Test Name Order Date Hemoglobin [id number] 04/22/2024 Next Appt Details Provider Name:CAITIE DE OLIVEIRA , 03/06/2025 01:00:00 PM, [address] [place], [address], Insurance Providers Payer Name Payer Address Payer Phone Subscriber Number Group Number Insured Name Patient Relationship to Insured Coverage Start Date Coverage End Date [employer] A[employer]OR S [address] [address] [place] [address] [id number] MOOK SETHI Self - patient is the insured 0 Medical (General) History Medical History History ICD Code :cardiovascular, Disease : Elevated lipi ds, :metabolic/endocrine, Disease : Diabetes , :musculoskeletal, Disease : Left Frozen Shoulder, Procedure Year : 1999 :musculoskeletal, Disease : plantar Fasc iitis, Surgical History Surgery Date(Month/Year) Cholecystitis, Sx_Procedure : Cholecyste ctomy 2003 Lumbar Degenerative disc disease, Sx_Pro cedure : LOIS 2008 Arthroscopic surgery Right knee - menisc al tear/arthritis nov 2023 Hospitalization History Reason Date(Month/Year) [place]- hematoma RIght leg- tom esteves. 09/07/24
--- OUTSIDE RECORDS SUMMARY | 2025-02-25 19:19 | XMS_ITS ---
Author Name Trenton Layton Address Unknown Organization [facility] Care Team Providers Care Nail Technician Name Role Phone Unavailable Primary Care Physician Unavailab le History Of Present Illness This is a 64 year old female who is an established patient who is being seen for an evaluation of skin lesions.Location: body throughoutDuration: yearsPertinent History: actinic keratoses and family history of non-melanoma skin cancerPertinent Negatives: no history of previous skin cancer and no family history of melanomaAdditional Visit Reasons: education and counseling about sun exposure, evaluation for suspicious growths, and evaluation of current neviAdditional History: Patient presents forCSE. Medications Medication Generic Name RxNorm Strength Strength Unit Route Dose Dose Form Frequency Date Started Date Ended Status Indication Sig ketoconazol e ketocona zole 740418 2 % Topica l cream 05/20/19 active Appl y to rash unde r the bianca st area twic e dayana y unti l conner r. triamcinolo ne acetonide triamcin olone acetonid e 5605839 0.1 % Topica l cream 05/20/19 active Appl y spar ingl y to rash unde r bianca st BID for 1-2 week s, then stop . Calcium calcium carbonat e NULL oral 07/09/19 14 active metformin metformi n Oral active Simvastatin simvasta tin NULL oral 07/16/19 15 active Vitamin D3 cholecal ciferol (vitamin D3) Oral active Ozempic 7868573 1 mg/dose (4 mg/3 mL) Subcut aneous Pen Injec tor active Aldara NULL 12/30/19 09 active FREESTYLE MIS LANCETS NULL 07/12 03/31 16 active FREESTYLE ART LITE NULL 0 16 active FREESTYLE ART LITE NULL 0 16 active Ketoconazol e NULL 07/06/19 11 suspend ed meloxicam meloxica m active Metrogel NULL 12/30/19 09 active Simvastatin NULL 07/09/19 14 suspend ed Triamcinolo ne Acetonide NULL 11 suspend ed Vitamin E NULL 07/09/19 14 suspend ed Problems Problem Code Type Status Date of Diagnosis Date of Resolution Hearing loss (disorder) 27647470(SN OMED) Problem active Actinic keratosis (disorder) (S NOMED) Problem active Inflamed seborrheic keratosis (disorder) 459114053(S NOMED) Diagnosis active 07/08/2013 Actinic keratosis L57.0(ICD-1 0) Diagnosis active 05/20/2019 Other rosacea L71.8(ICD-1 0) Diagnosis active 05/20/2019 Melanocytic nevi of other parts of face D22.39(ICD- 10) Diagnosis active 05/20/2019 Other seborrheic keratosis L82.1(ICD-1 0) Diagnosis active 05/20/2019 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) Diagnosis active 05/20/2019 Erythema intertrigo L30.4(ICD-1 0) Diagnosis active 05/20/2019 Melanocytic nevi of trunk D22.5(ICD-1 0) Diagnosis active 05/20/2019 Hemangioma of skin and subcutaneous tissue D18.01(ICD- 10) Diagnosis active 05/20/2019 Other melanin hyperpigmentation L81.4(ICD-1 0) Diagnosis active 05/20/2019 Other benign neoplasm of skin of left lower limb, including hip D23.72(ICD- 10) Diagnosis active 05/20/2019 Corns and callosities L84(ICD-10) Diagnosis active 2019 Actinic keratosis (disorder) (S NOMED) Diagnosis active 08/10/2020 Rosacea (disorder) 757297729(S NOMED) Diagnosis active 08/10/2020 Hemangioma of skin and subcutaneous tissue (disorder) 202301041(S NOMED) Diagnosis active 08/10/2020 Disorder of pigmentation (disorder) 541991913(S NOMED) Diagnosis active 08/10/2020 Melanocytic nevus of trunk (disorder) 318678124(S NOMED) Diagnosis active 08/10/2020 Benign neoplasm of skin of left upper limb (disorder) 62103317878 07173(SNOME D) Diagnosis active 08/10/2020 Benign neoplasm of skin of right lower limb (disorder) 44112555899 58497(SNOME D) Diagnosis active 08/10/2020 Intertrigo (disorder) 66300951(SN OMED) Diagnosis active 08/10/2020 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) Diagnosis active 08/10/2020 Hemangioma of skin and subcutaneous tissue (disorder) 473084382(S NOMED) Diagnosis active 08/09/2021 Rosacea (disorder) 440083141(S NOMED) Diagnosis active 08/09/2021 Seborrheic keratosis (disorder) 496764772(S NOMED) Diagnosis active 08/09/2021 Disorder of pigmentation (disorder) 132202576(S NOMED) Diagnosis active 08/09/2021 Intertrigo (disorder) 61258089(SN OMED) Diagnosis active 08/09/2021 Benign neoplasm of skin of left upper limb (disorder) 61427545433 73840(SNOME D) Diagnosis active 08/09/2021 Benign neoplasm of skin of right lower limb (disorder) 99691635213 47411(SNOME D) Diagnosis active 08/09/2021 Patient encounter status (finding) 003558556(S NOMED) Diagnosis active 08/09/2021 Actinic keratosis (disorder) 800895521(S NOMED) Diagnosis active 11/21/2022 Disorder of capillaries (disorder) 59835839(SN OMED) Diagnosis active 11/21/2022 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) 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(SN OMED) Diagnosis active 11/21/2022 Intertrigo (disorder) 30595314(SN OMED) Diagnosis active 11/21/2022 Melanocytic nevus of trunk (disorder) 755993238(S NOMED) Diagnosis active 11/21/2022 Seborrheic keratosis (disorder) 388858465(S NOMED) Diagnosis active 11/21/2022 Hemangioma of skin and subcutaneous tissue (disorder) 878871487(S NOMED) Diagnosis active 11/21/2022 Disorder of pigmentation (disorder) 327546011(S NOMED) Diagnosis active 11/21/2022 Hypopigmentation of skin (disorder) 23425549(SN OMED) Diagnosis active 11/21/2022 Benign neoplasm of skin of right lower limb (disorder) 88709103042 89609(SNOME D) Diagnosis active 11/21/2022 Patient encounter status (finding) 726036875(S NOMED) Diagnosis active 11/21/2022 History of clinical finding in subject (situation) 948975352(S NOMED) Problem active Dysplastic nevus of skin (disorder) 939498494(S NOMED) Problem active Actinic keratosis (disorder) (S NOMED) Diagnosis active 07/10/2023 Skin changes due to chronic exposure to non-ionizing radiation (disorder) 439700849(S NOMED) Diagnosis active 07/10/2023 Seborrheic keratosis (disorder) 853065451(S NOMED) Diagnosis active 07/10/2023 Patient encounter status (finding) 927023005(S NOMED) Diagnosis active 07/10/2023 Actinic keratosis (disorder) (S NOMED) Diagnosis active 03/07/2024 Hemangioma of skin and subcutaneous tissue (disorder) 767098375(S NOMED) Diagnosis active 03/07/2024 Disorder of capillaries (disorder) 44930851(SN OMED) Diagnosis active 03/07/2024 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) 12621836(SN OMED) Diagnosis active 03/07/2024 Disorder of pigmentation (disorder) 874569874(S NOMED) Diagnosis active 03/07/2024 Seborrheic keratosis (disorder) 938274127(S NOMED) Diagnosis active 03/07/2024 Melanocytic nevus of trunk (disorder) 489074604(S NOMED) Diagnosis active 03/07/2024 Melanocytic nevus of right upper limb (disorder) 935082949(S NOMED) Diagnosis active 03/07/2024 Intertrigo (disorder) 49173810(SN OMED) Diagnosis active 03/07/2024 Congenital anomaly of skin (disorder) 769253671(S NOMED) Diagnosis active 03/07/2024 Hypopigmentation of skin (disorder) 92320065(SN OMED) Diagnosis active 03/07/2024 Asteatosis cutis (disorder) 31578589(SN OMED) Diagnosis active 03/07/2024 Patient encounter status (finding) 291876356(S NOMED) Diagnosis active 03/07/2024 Actinic keratosis (disorder) 667990341(S NOMED) Diagnosis active 02/24/2025 Hemangioma of skin and subcutaneous tissue (disorder) 019024898(S NOMED) Diagnosis active 02/24/2025 Seborrheic keratosis (disorder) 085922066(S NOMED) Diagnosis active 02/24/2025 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) 65807272(SN OMED) Diagnosis active 02/24/2025 Disorder of pigmentation (disorder) 512715142(S NOMED) Diagnosis active 02/24/2025 Melanocytic nevus of trunk (disorder) 509384811(S NOMED) Diagnosis active 02/24/2025 Melanocytic nevus of right upper limb (disorder) 407211146(S NOMED) Diagnosis active 02/24/2025 Congenital anomaly of skin (disorder) 628799742(S NOMED) Diagnosis active 02/24/2025 Patient encounter status (finding) 712118281(S NOMED) Diagnosis active 02/24/2025 Results No data Encounters Service provided at [facility], [address] [place] [address], [address], [place], [place] [id number]. Office phone number is [phone]. Office fax number is [phone]. 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)Lentigines (L81.4)Benign Appearing Nevi (D22.5,D22.61)Keratosis Pilaris (Q82.8)Skin Education (Z71.89) [place] 02/24/2025 19:45:00 [facility] [id number] Reason For Referral No data Procedures Procedure Date Destruction of premalignant skin lesion (procedure) 02/24/2025 12:00 am [place] Destruction of premalignant skin lesion (procedure) 03/07/2024 12:00 am [place] Cryotherapy of skin lesion with liquid n itrogen (procedure) 11/21/2022 12:00 am [facility] Cryotherapy of skin lesion with liquid n itrogen (procedure) 08/10/2020 12:00 am [facility] Documentation of past medical history (p rocedure) Documentation of past medical history (p rocedure) Documentation of past medical history (p rocedure) Documentation of past medical history (p rocedure) Documentation of past medical history (p rocedure) Documentation of past medical history (p rocedure) Documentation of past medical history (p rocedure) Documentation of past medica l history (procedure) Lipoma removal Review Of Systems Provider reviewed on Feb 24, 2025.A focused review of systems was performed including Integumentary.No Problems With Healing And No Problems With Scarring (hypertrophic Or Keloid). Assessment 1.Actinic KeratosesCounselingLiquid Nitrogen: face; face; face; lip; face; Duration of freeze thaw-cycle (seconds) - 10; Application Tool - Cry-AC; Number of freeze-thaw Cycles - 2 freeze-thaw cycles.2.Sexton AngiomasCounseling3.Seborrheic KeratosesCounseling4.PoikilodermaCounseling5.LentiginesCounseling6.Benign Appearing NeviCounseling7.Keratosis PilarisCounseling8.Skin EducationCounseling Plan of Care Future visit for 02/24/2026 - Follow up in 1 year for: Skin Check - 15 minutes. Other Instructions:Annual CSE. Other Instructions: Annual CSE. Code Detail Instructions 20291017 ketoconazole 2 % topical cream A pply to rash under the breast area twice daily until clear. 8312882 triamcinolone aceton charly 0.1 % topical cream Apply sparingly to rash under breast BID for 1-2 weeks, then stop. 20291017 ketoconazole 2 % topical cream A pply to rash under the breast area twice daily until clear. 4622098 triamcinolone aceton charly 0.1 % topical cream Apply sparingly to rash under breast BID for 1-2 weeks, then stop. 20291017 ketoconazole 2 % topical cream A pply to rash under the breast area twice daily until clear. 6988315 triamcinolone aceton charly 0.1 % topical cream Apply sparingly to rash under breast BID for 1-2 weeks, then stop. 20291017 ketoconazole 2 % topical cream A pply to rash under the breast area twice daily until clear. 7228380 triamcinolone aceton charly 0.1 % topical cream Apply sparingly to rash under breast BID for 1-2 weeks, then stop. 8698530 triamcinolone aceton charly 0.1 % topical cream Apply sparingly to rash under breast BID for 1-2 weeks, then stop. 470261 ketoconazole 2 % topical cream A pply to rash under the breast area twice daily until clear. Instructions * I counseled the patient regarding the following:Skin Care: Sun protective clothing and broad spectrum sunscreen can prevent the formation of Actinic Keratoses. AKs can resolve with cryotherapy, PDT or topical chemotherapy.Expectations: Actinic Keratoses are precancerous proliferations that occur within sun damaged skin. If untreated, a small subset of AKs can develop into Squamous Cell Carcinoma.I recommended the following: Broad Spectrum Sunscreen SPF 30+ * I counseled the patient regarding the following:Expectations: Sexton Angiomas are benign vascular growths. * I counseled the patient regarding the following:Skin Care: Seborrheic keratoses are benign. No treatment is necessary.Expectations: Seborrheic keratoses are benign warty growths. Patients get more ofthem as they age. * I counseled the patient regarding the following:Skin Care: Poikiloderma can be treated with non-ablative fraxel or pulse dye laser. Preventative measures such as broad spectrum sunscreen and protective clothing are also recommended.Expectations: Poikiloderma is a type of photo-aging characterized by pigmentation, telangiectasia and atrophy.Contact Office if: If Poikiloderma fails to resolve with therapy. * I counseled the patient regarding the following:Expectations: Lentigines are benign pigmented lesions that occur on sun-exposed and sun-damaged skin. They are benign. * I counseled the patient regarding the following:Instructions: Monthly self- skin checks to monitor for any changes in moles are recommended.Expectations: Benign Nevi are pigmented nests of cells within the skin. No treatment is necessary.Contact Office if: Any moles change in size, shape or color; itch, burn or bleed. * I counseled the patient regarding the following:Skin care: Keratosis Pilaris should be treated withkeratolytics and moisturizers. Sun exposure may also be helpful.Expectations: Keratosis Pilaris is genetic, and results from abnormal keratinization of hair follicles. Commonly affected areas includethe cheeks, arms, thighs and flanks. Lesions can persist for decades, but usually improve later in life. * I counseled the patient regarding the following:Sun screen (SPF 30 or greater) should be applied during peak UV exposure (between 10am and 2pm) and reapplied after exercise or swimming.The importanceof monthly self-examination was emphasized.Hats, sunglasses, protective clothing, shade and avoidance of mid- day sun encouraged.I recommended the following: Broad Spectrum Sunscreen SPF 30+Self-Skin Exams Social History Code Activity Start Date End Date [id number] (SNOMED) Never smoker Sex Female Sexual orientation Unspecified Gender identity Unspecified Vital Signs No data Insurances Coverage Status Coverage Type Relationship to Subscriber Member Identifier Subscriber Identifier Group Identifier Payer Identifier Active 1 Self [id number] Inactive 2 Self [id number]
--- OUTSIDE RECORDS SUMMARY | 2025-02-25 19:19 | XMS_ITS | Patient Health Record ---
Author Organization [facility] Address [address] [place] [id number] Care Team Providers Care Test Evaluator Name Role Phone Bassem Mahajan MD Primary Care Provider UnavailJude Liao Unavailable [phone] Allergies No Known Allergies Reason For Referral No Information Medications Medication SIG (Take, Route, Frequency, Duration) Notes Start Date End Date Status metFORMIN HCl 500 MG Tablet Oral; Duration: 90 Active Simvastatin 20 MG Tablet 1 tablet in the evening Orally Once a day Active Biotene/Calcium Acti ve Multi Vitamin Daily Active Vitamin D Active Immunizations Vaccine Route Administration Date Status Comme nts Influenza Unknown 02/09/2021 Administered Social History Social History Additional Details Category Social Info Options Details Miscellaneous: Marital status: 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[place] Section Notes: Nonsmoker; occasional wine Nonsmoker; occasional wine Problems Problem Type SNOMED Code ICD Code Onset Dates Problem Status W/U Status Risk Notes Problem Screening for malignant neoplasm of colon (646096951) Encounter for screening for malignant neoplasm of colon (Z12.11) Active confirmed Problem History of adenomatous polyp of colon (417776167) History of adenomatous polyp of colon (Z86.010) Active confirmed Problem Screening for malignant neoplasm of rectum (863273440) Encounter for screening for malignant neoplasm of rectum (Z12.12) Active confirmed Problem Preprocedural examination (440115541940815) Preprocedural examination (Z01.818) Active confirmed Problem Diverticulosis of colon (391865107) Diverticulosis of colon (K57.30) Active confirmed Plan Of Treatment Pending Test Test Name Order Date Pathology 06/24/2021 Future Test Test Name Order Date COLONOSCOPY 07/28/2015 COLONOSCOPY 04/26/2021 Insurance Providers Payer Name Payer Address Payer Phone Subscriber Number Group Number Insured Name Patient Relationship to Insured Coverage Start Date Coverage End Date [employer] [address] [address] [place] [address] [id number] JOSSIE MOOK Self - patient is the insured Medical (General) History Medical History History ICD Code Jul, 2010 Screening Colonosc opy-- tubular adenoma, hyperplastic polyp, internal hemorrhoids Hyperlipidemia Diet-controlled DM Arthritis in knees Denies [place],DM,CVA,Lung disease,renal dise ase Benign uterine biopsies Colonoscopy 02/2016 with a hyperplastic polyp Barium swallow 08/2020 with n o esophageal abnormality, but with some spondylosis of the cervical spine with some mild indentation of the posterior cervical esophageal wall, but without any esophageal obstruction Surgical History Surgery Date(Month/Year) Knee surgery Cholecystectomy Tonsillectomy Bilateral carpal tunnel
== END 2025-02-25 14:57 | disposition home or self-care (01) ==
LOC: HO.HOS 14:27
PROVIDERS: PCP Internal Medicine; Visit Provider Orthopaedic Surgery
DX: M17.11 Unilateral primary osteoarthritis, right knee (principal); M25.561 Pain in right knee
CPT/HCPCS: 20610; 99213

== ENCOUNTER → 2025-02-25 14:26 | Outpatient (BNVA) | payer OTHER, SELFPAY | PROVIDERS: PCP Internal Medicine; Visit Provider Orthopaedic Surgery | DX: M17.11 Unilateral primary osteoarthritis, right knee (principal) | CPT/HCPCS: 20610; J1010; J2003 ==